=== PATIENT | female | born 1935 | race Two or more races ===

== ENCOUNTER → 2024-09-22 11:01 | Outpatient (REF) | payer OTHER, MEDICARE, SELFPAY ==
[2024-09-22 12:13] LABS: % Eosinophils 7.4 % (0-6); % Immature Granulocytes 0.2 % (0-0.5); % Lymphocytes 22.6 % (20.5-51.1); % Monocytes 10.9 % (1.7-9.3); % Neutrophils 57.9 % (42.2-75.2); Absolute Basophils 0.1 10^3/uL (0-0.2); Absolute Eosinophils 0.6 10^3/uL (0-0.7); Absolute Lymphocytes 1.8 10^3/uL (1.2-3.4); Absolute Monocytes 0.9 10^3/uL (0.1-0.6); Absolute Neutrophils 4.7 10^3/uL (1.4-6.5); Hematocrit 30.2 % (37.0-47.0); Hemoglobin 9.8 g/dL (12.0-16.0); Mean Corp Hgb Conc. 32.5 g/dL (33.0-37.0); Mean Corpuscular Volume 95.6 fL (81.0-99.0); Mean Platelet Volume 10.1 fL (7.4-10.4); Nucleated Red Blood Cells % 0 %; Platelet Count 269 10^3/uL (130-400); Red Blood Cell Count 3.16 10^6/uL (4.20-5.40); Red Cell Dist. Width 13.9 % (11.5-14.5); White Blood Cell Count 8.1 10^3/uL (4.8-10.8)
[2024-09-22 12:56] LABS: ALT (SGPT) 13 U/L (0-35); AST (SGOT) 21 U/L (14-36); Albumin 3.8 g/dl (3.5-5.0); Alkaline Phosphatase 88 U/L (38-126); Blood Urea Nitrogen 20 mg/dl (7-17); Carbon Dioxide 32 mmol/L (22-30); Chloride 99 mmol/L (98-107); Glucose 87 mg/dl (70-99); HDL Cholesterol 54 mg/dl; LDL Cholesterol, Calculated 38 mg/dl; Magnesium 2.2 mg/dl (1.6-2.3); Potassium 4.2 mmol/L (3.5-5.1); Sodium 140 mmol/L (135-145); Total Bilirubin 0.5 mg/dl (0.2-1.3); Total Cholesterol 145 mg/dl (50-199); Total Protein 6.3 g/dl (6.3-8.2); Triglyceride 267 mg/dl (10-149); Very Low Density Lipoprotein 53 mg/dl (0-30); eGFR 48.63
[2024-09-22 13:08] LABS: Vitamin B12 833 pg/ml (239-931)
== END ==
LOC: OLABN 11:01
PROVIDERS: ATTENDING PHYSICIAN Student in an Organized Health Care Education/Training Program
DX: I10 Essential (primary) hypertension (principal); E78.5 Hyperlipidemia, unspecified; E78.89 Other lipoprotein metabolism disorders; E53.9 Vitamin B deficiency, unspecified; Z79.899 Other long term (current) drug therapy
CPT/HCPCS: 36415; 80053; 80061; 82607; 83735; 85025

== ENCOUNTER → 2024-10-28 09:57 | Outpatient (REF) | payer MEDICARE, OTHER, SELFPAY ==
[2024-10-28 11:55] LABS: TSH 5.11 uIU/ml (0.47-4.68)
== END ==
LOC: OLABN 09:57
PROVIDERS: ATTENDING PHYSICIAN Student in an Organized Health Care Education/Training Program
DX: E03.9 Hypothyroidism, unspecified (principal)
CPT/HCPCS: 36415; 84443

== ENCOUNTER → 2024-11-22 11:23 | Outpatient (REF) | payer MEDICARE, OTHER, SELFPAY ==
[2024-11-22 12:15] LABS: Hematocrit 31.6 % (37.0-47.0); Hemoglobin 10.0 g/dL (12.0-16.0); Mean Corp Hgb Conc. 31.6 g/dL (33.0-37.0); Mean Corpuscular Volume 96.3 fL (81.0-99.0); Nucleated Red Blood Cells % 0 %; Platelet Count 254 10^3/uL (130-400); Red Cell Dist. Width 14.8 % (11.5-14.5)
[2024-11-22 12:32] LABS: ALT (SGPT) 11 U/L (0-35); AST (SGOT) 17 U/L (14-36); Albumin 3.6 g/dl (3.5-5.0); Alkaline Phosphatase 79 U/L (38-126); Blood Urea Nitrogen 16 mg/dl (7-17); Calcium 9.1 mg/dl (8.4-10.2); Carbon Dioxide 30 mmol/L (22-30); Chloride 102 mmol/L (98-107); Glucose 91 mg/dl (70-99); Magnesium 2.2 mg/dl (1.6-2.3); Potassium 4.0 mmol/L (3.5-5.1); Sodium 138 mmol/L (135-145); Total Protein 6.4 g/dl (6.3-8.2); eGFR 48.63
== END ==
LOC: OLABN 11:23
PROVIDERS: ATTENDING PHYSICIAN Student in an Organized Health Care Education/Training Program
DX: R60.9 Edema, unspecified (principal)
CPT/HCPCS: 36415; 80053; 83735; 85025

== ENCOUNTER → 2025-03-02 13:47 | Outpatient (REF) | payer MEDICARE, OTHER, SELFPAY ==
[2025-03-02 14:06] LABS: Hematocrit 34.1 % (37.0-47.0); Hemoglobin 10.9 g/dL (12.0-16.0); Mean Corp Hgb Conc. 32.0 g/dL (33.0-37.0); Mean Corpuscular Volume 94.2 fL (81.0-99.0); Nucleated Red Blood Cells % 0 %; Platelet Count 208 10^3/uL (130-400); Red Cell Dist. Width 14.7 % (11.5-14.5)
[2025-03-02 15:47] LABS: ALT (SGPT) 14 U/L (0-35); AST (SGOT) 20 U/L (14-36); Albumin 3.9 g/dl (3.5-5.0); Alkaline Phosphatase 82 U/L (38-126); Blood Urea Nitrogen 21 mg/dl (7-17); Calcium 9.0 mg/dl (8.4-10.2); Carbon Dioxide 32 mmol/L (22-30); Chloride 102 mmol/L (98-107); Glucose 92 mg/dl (70-99); Magnesium 2.2 mg/dl (1.6-2.3); Potassium 4.4 mmol/L (3.5-5.1); Sodium 138 mmol/L (135-145); Total Protein 6.7 g/dl (6.3-8.2); eGFR 48.63
== END ==
LOC: OLABN 13:47
PROVIDERS: ATTENDING PHYSICIAN Student in an Organized Health Care Education/Training Program
DX: J44.9 Chronic obstructive pulmonary disease, unspecified (principal)
CPT/HCPCS: 36415; 80053; 83735; 83880; 85025

== ENCOUNTER → 2025-03-29 13:00 | Outpatient (REF) | payer MEDICARE, OTHER, SELFPAY ==
[2025-03-29 14:26] LABS: TSH 5.77 uIU/ml (0.47-4.68)
== END ==
LOC: OLABN 13:00
PROVIDERS: ATTENDING PHYSICIAN Student in an Organized Health Care Education/Training Program
DX: E03.9 Hypothyroidism, unspecified (principal)
CPT/HCPCS: 36415; 84439; 84443

== ENCOUNTER 2025-04-07 22:43 | Inpatient (IN) | payer MEDICARE, OTHER, SELFPAY ==
[2025-04-07 18:54] VITALS: BP 129/59
[2025-04-07 19:00] VITALS: BP 128/58
[2025-04-07 19:10] LABS: Venous Blood Gas B.E. 5.1 mmol/L (-4 to +4); Venous Blood Gas O2 Sat % 87.9 %
--- NOTE | 2025-04-07 19:17 | ED.GENMED ---
History of Present Illness
General
Chief Complaint: Breathing Problem
Time Seen by Provider: 04/07/25 18:53
History of Present Illness
History of Present Illness:
89-year-old female with history of dementia, CHF, COPD on 3 L O2 at baseline presenting to the emergency department for difficulty breathing and fever. Patient arrives from nursing facility. She was noted to have increased work of breathing,
placed on nonrebreather without interval improvement. Medics were subsequently called. Per medics, noted to be febrile and hypoxic. Patient was started on breathing treatments and administered steroids. On arrival, patient does report cough and
shortness of breath. Reports that she is now feeling better after the nonrebreather and the breathing treatments. Denies any associated chest pain or abdominal pain. She is unaware of any fevers. Baseline per medics is orientation to person
only. No additional history or symptoms reported at this time.
Phy Exam
Physical Exam
Physical Exam:
General: Mild to moderate respiratory distress
HEENT: protecting airway
Neck: appears supple
CV: Tachycardic, regular rhythm, no evidence of cyanosis
Resp: Increased work of breathing with wheezing bilaterally
Abd: Soft and non-distended, no tenderness to palpation
Extremities: No deformities, no swelling
Neuro: alert, disoriented to time
: deferred
Rectal: deferred
Psych: Normal affect
Skin: Intact
Scores
Heart Failure Risk
Heart Failure Risk Score: Not Applicable
Sepsis
Sepsis Screening
Sepsis Assessment: Sepsis
Sepsis Screen
Sepsis Screen: Sepsis
Date: 04/07/25
Time: 22:49
Course
Orders/Labs/Results
Orders:
Orders
04/07/25 18:53
Ipratropium/Albuterol Sulfate [Duoneb] 3 ml INH R NOW STA
04/07/25 18:55
CR Chest Portable - 1 View Urgent
Comment:
Reason For Exam: sepsis,. SOB
Reason Study Needs to be Portable: Patient Unstable
04/07/25 19:03
COVID-19 Antigen Urgent
Source: Nasal Swab
Complete Blood Count/With Diff Urgent
Comprehensive Metabolic Panel Urgent
Lactic Acid Q4H
Comment: CANCEL 2nd LACTIC ACID IF 1st LACTIC ACID IS LESS THAN 2
Manual Differential Urgent
PTT Urgent
Prothrombin Time Urgent
Venous Blood Gas Urgent
%Oxygen/Room Air: 30
Blood Culture Q30M
BERNARDA Source: Blood/Venous
Specimen Description:
Influenza A+B Rapid Molecular Urgent
BERNARDA Source: Nasal Swab
Specimen Description:
04/07/25 19:08
Blood Culture Q30M
BERNARDA Source: Blood/Venous
Specimen Description:
04/07/25 20:03
Acetaminophen [Tylenol] 1,000 mg PO NOW STA
04/07/25 21:04
Cefepime HCl [Maxipime] 2,000 mg IV NOW STA
Vancomycin [Vancocin] 1,500 mg 0.9% Sodium Chloride 500 ml [Nss] 500 ml IV NOW
04/07/25 21:39
Azithromycin [Zithromax] 500 mg PO NOW STA
CefTRIAXone [Rocephin] 1,000 mg IV NOW STA
04/07/25 21:40
Doxycycline [Vibramycin] 100 mg PO NOW STA
04/07/25 21:44
Sterile Water [Sterile Water For Injection] 10 ml IV STAT STA
04/07/25 21:55
Strep pneumoniae Antigen Urgent
BERNARDA Source: Urine
Specimen Description:
04/07/25 22:00
Admit/Transfer Patient As Directed
Co-Sign Provider:
Level of Care: Inpatient admission
Assign to:: Telemetry
Physician / Group: loly loza
Diagnosis: Acute/ chron hypoxic resp failure 2/2 copd/R pna
Reason for Telemetry: Arrhythmia
Date to Stop Telemetry: 04/10/25
Time to Stop Telemetry: 11:00
Reason for Hospitalization: Acute/ chron hypoxic resp failure 2/2 copd/R pna
Expected length of stay greater than two midnights?: Yes
ELOS- Estimated Length of Stay in days: 3
I certify the patient meets the requirements for IP care: Yes
Code Status As Directed
Resuscitation Status: Full Code
04/07/25 22:11
PRN Pain Medication Management As Directed
May give lesser potent ordered pain med per pt: Yes
preference::
Protocol:: Medication orders for pain may be administered in a
manner that supports deferring to patient preference
when the pt is:
- Requesting an ordered lesser potent pain medication.
Least to most potent pain medications are defined
as: acetaminophen < NSAID < tramadol < opioids
(morphine, oxycodone, hydromorphone).
- Requesting a lesser dose of the same medication IF
ORDERED.
- Requesting a less intrusive route of administration
if both routes are prescribed by the provider (PO <
IV).
04/07/25 22:39
Urinalysis Reflex To Culture Urgent
Date Specimen was Collected: 04/07/25
Time Specimen was Collected: 22:37
Urine Microscopic Reflex Cult Urgent
04/10/25 11:00
DC Protocol for Telemetry ONCE
Abnormal Lab Results
04/07/25 04/07/25
19:03 22:39
RBC 3.14 L 10^6/uL
(4.20-5.40)
Hgb 9.5 L g/dL
(12.0-16.0)
Hct 29.7 L %
(37.0-47.0)
MCHC 32.0 L g/dL
(33.0-37.0)
RDW 14.8 H %
(11.5-14.5)
Segmented Neutrophils 41 L %
(42-75)
Band Neutrophils 18 H %
(0-3)
Lymphocytes (Manual) 16 L %
(20-51)
Monocytes (Manual) 24 H %
(2-9)
VBG pH 7.31 L
(7.32-7.43)
VBG pCO2 65 H mmHg
(35-48)
VBG pO2 57 H mmHg
(30-50)
VBG HCO3 32.7 H mmol/L
(22-27)
Carbon Dioxide 31 H mmol/L
(22-30)
Glucose 117 H mg/dl
(70-99)
Urine Ketones 2+ A
(Negative)
Ur Occult Blood Reflex 1+ A
(Negative)
Urine Albumin (Reflex) 2+ A
(Neg - Trace)
04/07/25 19:03
04/07/25 19:03
Vital Signs
Initial and Last Documented VS:
Initial Vital Signs
Pulse Resp BP Pulse Ox
115 31 129/59 100
04/07/25 18:54 04/07/25 18:54 04/07/25 18:54 04/07/25 18:54
Last Documented Vital Signs
Pulse Resp BP Pulse Ox
96 25 120/70 94
04/07/25 22:15 04/07/25 22:15 04/07/25 22:00 04/07/25 22:15
MDM/Problems Addressed
MDM/Problems Addressed:
[id number]-year-old female with history of COPD, CHF, dementia presenting for difficulty breathing and fever. Vital signs arrival significant for tachycardia.
On exam, patient in mild to moderate respiratory distress with increased work of breathing, bilateral wheezing. Patient noted to be febrile, meeting SIRS criteria with suspected source of infection being pulmonary. Patient reports interval
improvement on nonrebreather. Will maintain while getting breathing treatments. Received steroids prior to arrival. Plan for laboratory analysis including lactic acid, cultures, chest x-ray imaging. Holding IV fluids given known history of CHF.
Will continue to closely monitor.
21:00 -Patient's labs relatively unremarkable. No leukocytosis, normal lactic acid. No present concern for severe sepsis or septic shock. No indication for 30 cc/kg fluid bolus. Again known history of CHF. Chest x-ray shows possible right-sided
pneumonia. On reassessment, remains wheezy, increased O2 requirements, however stable. In the setting of hypoxia, fever, cough, clinical concern for pneumonia. Given senior care setting, will treat with broad-spectrum antibiotics for concern of
hospital-acquired. Plan for admission
*Pulse Oximetry
SaO2: 100
Nasal Cannula flow liters per minute: 6
Patient hypoxic: yes
*EKG
Interpreted by ED Provider?: Yes
EKG Intrepretation Date: 04/07/25
EKG Intrepretation Time: 19:19
Interpretation: normal
Comparison EKG: no changes (01/23/25)
Heart Rate: 72
Rate: normal
Rhythm: sinus
[place]: normal axis
Interval: normal interval
QRS Pattern: normal QRS
Ischemia: no ischemia
*Critical Care Note
Total Time (30-74mins, 75-104mins- exclusive of procedures): 37
comment:
The high probability of a clinically significant, sudden or life threatening deterioration of the pulmonary/sepsis system(s) required my full and direct attention, intervention and personal management. The aggregate critical care time was 37
minutes. This time is in addition to time spent performing reported procedures but includes the following:
[x] Data Review and interpretation
[x] Patient assessment and monitoring of vital signs
[x] Documentation
[x] Medication orders and management
ED Attending Note
-
Portions of this chart may have been created with voice recognition software.� Occasional wrong word or��sound alike� substitutions may have occurred due to the inherent limitations of voice recognition software.
Discharge Plan
Departure
Patient Disposition: Admit
Date of Disposition: 04/07/25
Time of Disposition: 21:08
Presentation/result/management discussed w/ accepting MD/DO: Hospitalist
Patient with high blood pressure during this ER visit?: No
Condition: Fair
Discharge Problem:
COPD with exacerbation, Hypoxia
Interventions
Interventions:
*Risk Screen - Suicide Last Done: 04/07/25 19:03
*General Assessment Last Done: 04/07/25 19:03
*Neglect/Abuse Screening Last Done: 04/07/25 19:03
*ED- Fall Risk Assessment Last Done: 04/07/25 19:03
*ED COVID-19 Vaccine History Last Done: 04/07/25 19:03
*ED Influenza Vaccine History Last Done: 04/07/25 19:03
ED- Cardiac Assessment Last Done: 04/07/25 19:43
ED- Pulmonary Assessment Last Done: 04/07/25 19:43
[2025-04-07 19:18] VITALS: BMI 27.0
[2025-04-07 19:18] LABS: Hematocrit 29.7 % (37.0-47.0); Hemoglobin 9.5 g/dL (12.0-16.0); Mean Corp Hgb Conc. 32.0 g/dL (33.0-37.0); Mean Corpuscular Volume 94.6 fL (81.0-99.0); Platelet Count 211 10^3/uL (130-400); Red Cell Dist. Width 14.8 % (11.5-14.5)
[2025-04-07 19:21] LABS: APTT 29.0 Sec (23.4-35.0); INR 1.06; PT 14.3 Sec (11.4-14.6)
[2025-04-07 19:31] LABS: ALT (SGPT) 13 U/L (0-35); AST (SGOT) 22 U/L (14-36); Albumin 3.8 g/dl (3.5-5.0); Alkaline Phosphatase 81 U/L (38-126); Blood Urea Nitrogen 13 mg/dl (7-17); Calcium 8.5 mg/dl (8.4-10.2); Carbon Dioxide 31 mmol/L (22-30); Chloride 99 mmol/L (98-107); Estimated Creatinine Clearance 37 ml/min; Glucose 117 mg/dl (70-99); Potassium 4.1 mmol/L (3.5-5.1); Sodium 137 mmol/L (135-145); Total Protein 6.9 g/dl (6.3-8.2); eGFR 54.53
[2025-04-07] MEDS: DUONEB 3 ML INH ×2 (19:37→22:50)
[2025-04-07 19:40] LABS: COVID-19 Antigen Negative (Negative)
[2025-04-07 19:56] LABS: Absolute Neutrophils -Man Diff 5.9 10^3/uL (1.4-6.5)
[2025-04-07 19:57] LABS: Normal RBC Morphology Yes; Platelets Checked Yes; Total Cells Counted 100
[2025-04-07 20:00] VITALS: BP 136/48
[2025-04-07] MEDS: TYLENOL 1000 MG PO (20:48)
[2025-04-07 21:00] VITALS: BP 139/62
--- NOTE | 2025-04-07 21:24 | W.PN.UPDATE ---
Update Note
Progress Note Update
This is an addendum to H&P written by FULFILLMENT ASSOCIATE Juli Peralta
I saw and examined the patient.
The FULFILLMENT ASSOCIATE's note was reviewed and I agree with the note.
Comment:
Ms. Asia George is a 89 yo woman with hx dementia, HF, COPD on 3L O2 presents to the ER with increasing work of breathing and fever. Patient was given breathing treatment and Solumedrol by EMS.
Triage VS: P 115, RR 31, SpO2 100% on 6L
On exam patient appears fatigued, no acute distress. Chest: scattered end expiratory wheezing, no LE swelling
LABS: WBC 10, Hg 9.5, PLT 211, 18% Bands, INR 1.06, Na 136, K+ 4.1, Cl 99, CO2 31, BUN 13, Cr 1.0, Glucose 117, liver enzymes WNL
Covid negative
Influenza negative
CXR with right-sided infiltrate, awaiting final read
MAR: IV Vanc/Cefepime
Right-sided pneumonia
Acute COPD exacerbation
Hypoxic Respiratory Failure 2/2 above requiring NRB, now on 6L
-admit to telemetry
-O2 support as needed
-IV Cef/Doxycycline
-strep pneumo/legionalla ag testing
-duonebs standing and PRN
-continue steroids (received IV Solumedrol by EMS) - start Decadron 4mg q12 tomorrow
-mucinex, acapella
Heart Failure, Unknown EF
Dementia
awaiting completion of med rec
DVT PPx
FULL CODE
76 minutes spent on patient care
--- NOTE | 2025-04-07 21:29 | HPS.HSE ---
Family Physician
-
Family Physician: Eliezer Nguyen,
Chief Complaint
-
Shortness of breath, hypoxia, cough
History of Present Illness
89-year-old female from [facility][1] who said shortness of breath over the past few hours with pulse ox in the low 80s despite her 2 L nasal cannula. She had breathing treatment and Solu-Medrol given by EMS she required 6 L nasal cannula. She
reports a productive cough clear in color the patient denies headache, fever, chills, chest pain, palpitations, abdominal pain, nausea, vomiting, diarrhea
She has past medical history dementia, CHF, COPD on chronic 2 to 4 L oxygen
Medical History
Past Medical History
Past Medical History: Reports Other
Additional Past Medical History:
dementia
CHF
COPD on chronic 2 to 4 L oxygen
Past Surgical History: Reports Other (Unknown)
Social History
Tobacco: Former Smoker
Alcohol: None
Drug: None
Personal: Single
Living: [facility]
Employment: Retired
Family History
Family History: Not pertinent
Allergies / Home Medications
Allergies reflects when Allergies were last updated in [employer].
Home Medications with original date entered in [employer]
Allergy/Medication List:
Allergies
Allergy/AdvReac Type Severity Reaction Status Date / Time
amoxicillin Allergy Rash Verified 04/07/25 19:19
simvastatin Allergy Rash Verified 04/07/25 19:19
Home Medications
Aspir-81 81 mg PO DAILY 04/07/25
B12 1,000 mcg PO DAILY 04/07/25
Miralax 17 mg PO DAILY 04/07/25
Pepcid 20 mg PO DAILY 04/07/25
Refresh Tears 1 drp LEFT EYE QID 04/07/25
amlodipine 2.5 mg PO DAILY 04/07/25
escitalopram oxalate 10 mg tablet 10 mg PO DAILY 04/07/25
furosemide 40 mg tablet 40 mg PO DAILY 04/07/25
ipratropium 0.5 mg-albuterol 3 mg (2.5 mg base)/3 mL nebulization soln 3 ml inhalation TID 04/07/25
levothyroxine 75 mcg tablet 75 mcg PO DAILY 04/07/25
metoprolol succinate 25 mg tablet,extended release 24 hr 25 mg PO DAILY 04/07/25
senna 8.6 mg PO DAILY 04/07/25
tiotropium 2.5 mcg-olodaterol 2.5 mcg/actuation mist for inhalation (Stiolto Respimat) 1 puff inhalation DAILY 04/07/25
Review of Systems
-
History Source: Patient and [facility]
A 12 point ROS was completed and negative except as noted: Yes
Constitutional: Denies Fever
EENT: Denies Sore Throat or Runny Nose
Respiratory: Reports Cough (Productive clear in color) and Trouble Breathing
Cardiac: Denies Chest Pain or Syncope
Abdomen/GI: Denies Abdominal Pain, Nausea, Vomiting or Diarrhea
: Denies Dysuria, Frequency, Flank Pain, Incontinence or Difficulty Voiding
Musculoskeletal: Denies Joint Pain
Skin: Denies Itching or Rash
Neurological: Denies Dizzy, Headache or Weakness
Endocrine: Reports No Symptoms
Hematologic/Lymphatic: Reports No Symptoms
Psych: Reports Calm
Physical Exam
Vital Signs
Vital Signs
Pulse Resp BP Pulse Ox
102 25 139/62 94
04/07/25 21:15 04/07/25 21:15 04/07/25 21:00 04/07/25 21:15
Physical Exam
General: Conversant
HEENT: NormoCephalic, Anicteric, Moist mucous membranes, PERRLA, Rhodell Conjunctivae, No Ptosis and Oxygen (6 L nasal cannula)
Respiratory: Decreased Breath Sounds (Throughout both lung ragland); No Wheezes, Rales or Rhonchi
Cardiac: S1/S2 and Regular Rhythm; No Murmur, Rub, Gallop or Peripheral Edema
Breast: Deferred by me
GI: Soft, Non Tender, Non Distended and Normal Bowel Sounds
Rectal: Deferred by Provider
Genito-urinary: Deferred by me
Musculoskeletal: No Clubbing, No Cyanosis and No Edema
Skin: Warm and Dry; No Rash
Neuro: AO x 3, No Motor Deficits, Nonfocal/grossly intact, Cranial Nerves Intact and No Sensory Deficits; No Slurred Speech, Facial Droop, Tremors or Sedated
Psych: Calm
Laboratory Results
-
04/07/25 19:03
04/07/25 19:
Laboratory Results
PT 14.3 Sec (11.4-14.6) 04/07/25 19:03
INR 1.06 04/07/25 19:
APTT 29.0 Sec (23.4-35.0) 04/07/25 19:03
Lactic Acid Cancelled 04/07/25 23:00
Total Bilirubin 0.9 mg/dl (0.2-1.3) 04/07/25 19:03
AST 22 U/L (14-36) 04/07/25 19:03
ALT 13 U/L (0-35) 04/07/25 19:03
Alkaline Phosphatase 81 U/L (38-126) 04/07/25 19:03
Data Reviewed
-
Diagnostic Radiology: Report Reviewed by me
Lab Data: Labs Reviewed by me
Impression/Plan
-
Impression/plan:
Admit to telemetry
#Acute on chronic hypoxic respiratory failure secondary to COPD exacerbation with possible right-sided PNA
Patient typically on 2 to 4 L nasal cannula requiring 6 L satting at 94% as she refuses BiPAP
WBC 10, 16% bands 94% 6 L nasal cannula
COVID/influenza negative
Patient was given Solu-Medrol by EMS
Will continue Decadron 4 mg every 12 hours
Check strep pneumoniae antigen
- IV Rocephin, Zithromax
-Incentive spirometry
-Tylenol
-DuoNebs scheduled and as needed
-Blood cultures x 2
Follow CBC, CMP
-Consult PT/OT/rn case management
#Dementia
mild oriented to name place history
#Chronic CHF
I/O, Daily weight
#Chronic anemia normocytic
Hgb 9.5 appears near baseline
DVT prophylaxis
sq lovenox
Full code
[2025-04-07 22:00] VITALS: BP 120/70
[2025-04-07] MEDS: VIBRAMYCIN 100 MG PO (22:08)
[2025-04-07] MEDS: ROCEPHIN 1000 MG IV (22:08)
[2025-04-07] MEDS: STERILE WATER FOR INJECTION 10 ML IV (22:12)
[2025-04-07 22:47] LABS: Urine Character Clear (Clear)
[2025-04-07 22:56] LABS: Urine Squamous Cell >30 /LPF (Few)
[2025-04-07 22:57] LABS: Urine Red Blood Cell 0-2 /HPF (0-2); Urine White Cell 0-2 /HPF (0-5)
[2025-04-07 23:00] VITALS: BP 132/74
[2025-04-08] VITALS (30 sets, daily range): BP systolic 88–145; BP diastolic 40–76; BMI 27.0; BMI 25.7
[2025-04-08 02:36] LABS: B.E. 3.3 mmol/L; HCO3 30.4 mmol/L (21-28); O2 Saturation % 97.5 % (94-98); PCO2 59 mmHg (32-35); PO2 81 mmHg (83-108)
[2025-04-08] MEDS: SYNTHROID PO ×2 (05:18→05:56)
[2025-04-08] MEDS: DECADRON 4 MG IV ×2 (05:18→17:32)
[2025-04-08 06:01] LABS: Hematocrit 29.6 % (37.0-47.0); Hemoglobin 9.6 g/dL (12.0-16.0); Mean Corp Hgb Conc. 32.4 g/dL (33.0-37.0); Mean Corpuscular Volume 92.8 fL (81.0-99.0); Nucleated Red Blood Cells % 0 %; Platelet Count 209 10^3/uL (130-400); Red Cell Dist. Width 14.7 % (11.5-14.5)
--- NOTE | 2025-04-08 06:01 | PTCARENOTE ---
Received verbal report from TEQUILA Jerome. Patient arrived to floor via stretcher. Patient oriented only to self and lethargic. On HFNC at arrival to the floor, current settings are 40L 25% , SpO2 currently 92%. NSR on the monitor. PW in place due
to respiratory status, which is draining yellow urine. Hygiene complete. Patient currently resting in bed with bed alarm on.
[2025-04-08 06:38] LABS: ALT (SGPT) 13 U/L (0-35); AST (SGOT) 16 U/L (14-36); Albumin 3.6 g/dl (3.5-5.0); Alkaline Phosphatase 77 U/L (38-126); Blood Urea Nitrogen 19 mg/dl (7-17); Calcium 8.7 mg/dl (8.4-10.2); Carbon Dioxide 31 mmol/L (22-30); Chloride 99 mmol/L (98-107); Estimated Creatinine Clearance 30 ml/min; Glucose 167 mg/dl (70-99); Potassium 4.1 mmol/L (3.5-5.1); Sodium 137 mmol/L (135-145); Total Protein 6.6 g/dl (6.3-8.2); eGFR 48.63
--- NOTE | 2025-04-08 06:48 | W.PN.UPDATE ---
Update Note
Progress Note Update
Became less responsive overnight, ABG� done PCO2 59 weaning down FIO2 HFNC to keep POX 90-92%. Soft bp 88 systolic. Added bolus IVF and levophed but on hold for now with improvement of bp.
--- NOTE | 2025-04-08 07:23 | W.PN.HOSP.TC ---
Today's Communication/Plan
-
See plan
Assessment / Plan
Assessment / Plan
Physical Exam
General: Not in acute distress
HEENT: Normocephalic. On high flow oxygen.
Respiratory: Decreased Breath Sounds (Throughout both lung ragland)
Cardiac: S1/S2 and Regular Rate and Rhythm
GI: Soft, Non Tender, Non Distended and Normal Bowel Sounds
Musculoskeletal: No Cyanosis and No Edema
Skin: Warm and Dry
Neuro: AAO x 3, No Motor Deficits, Nonfocal/grossly intact, Cranial Nerves Intact and No Sensory Deficits
Psych: Calm
Assessment/Plan
Ms. Asia George is a 89 yo female with past medical history of dementia, heart failure, COPD on 2 L to 4 L O2 presented to the emergency room with increased work of breathing and fever. She was saturating 80s percent range on her usual
baseline oxygen of 2 L to 4 L. Patient was given breathing treatment and Solumedrol by EMS. She reports a productive cough clear in color the patient denies headache, fever, chills, chest pain, palpitations, abdominal pain, nausea, vomiting,
diarrhea.
Initial, triage vital signs: HR 115 bpm, RR 31 breaths/min, SpO2 100% on 6L
Initially, on exam, patient appeared fatigued, no acute distress. Chest: scattered end expiratory wheezing, no LE swelling
LABS: WBC 10, Hg 9.5, PLT 211, 18% Bands, INR 1.06, Na 136, K+ 4.1, Cl 99, CO2 31, BUN 13, Cr 1.0, Glucose 117, liver enzymes WNL
Covid negative
Influenza negative
Patient initially received IV Vancomycin and Cefepime for suspected right-sided pneumonia.
#Acute on chronic hypoxic respiratory failure secondary to COPD exacerbation with possible bronchitis or early pneumonia-no obvious infiltrate on chest x-ray
#COPD (chronically on 2 to 4 L nasal cannula)
-WBC 10, 16% bands 94% 6 L nasal cannula
-COVID/influenza negative
-Patient was given Solu-Medrol by EMS
-Continue IV Decadron 4 mg IV every 12 hours
-Strep pneumo antigen negative
-Check Legionella antigen
-IV Rocephin, Doxycycline
-Incentive spirometry
-Nebulizers-begin DuoNebs; hold Spiriva while on ipratropium bromide nebulizers
-BiPAP if needed-suspect chronic hypercapnia
-Follow Blood cultures x 2
-Pulmonary toilet, Mucinex, Acapella
#Suspected Acute CHF Exacerbation
-Received IV fluids for hypotension on 04/08/25 morning
-I/O, Daily weight
-Continue Lasix
-Appreciate cardiology input
#Dementia
-Mild oriented to name place history
#Chronic anemia normocytic
-Hgb stable; appears baseline
Monitor for urinary retention
-Bladder scans/straight cath protocol ordered
DVT prophylaxis
sq lovenox
Diet: Temporary diet of IDDSI 4 puree and IDDSI 2 Mildly thick liquids with supervision during meals. Pt demo poor level of stamina and fluctuating JAVIER. [employer] SERVICE CAPTAIN will follow closely.
Full code
High flow oxygen is a high risk encounter.
Anticipated Discharge: > 48 hours
Subjective/Interval History
-
Date of Service: April 08, 2025
Patient was seen and examined. She was doing okay, denied any new symptoms or complaints.
Objective Data
-
Labs:
Laboratory Results
04/07/25 04/08/25 04/08/25
19:03 02:26 05:44
WBC 7.1
Hgb 9.6 L
Hct 29.6 L
Plt Count 209
PT 14.3
INR 1.06
APTT 29.0
HCO3 30.4 H
Sodium 137 137
Potassium 4.1 4.1
Chloride 99 99
Carbon Dioxide 31 H 31 H
BUN 13 19 H
Creatinine 1.0 1.1 H
Glucose 117 H 167 H
Calcium 8.5 8.7
Total Bilirubin 0.9 0.4
AST 22 16
ALT 13 13
Alkaline Phosphatase 81 77
Vital Signs:
Vital Signs
Temp Pulse Resp BP Pulse Ox
97.8 F 73 21 118/55 93
04/08/25 01:55 04/08/25 06:03 04/08/25 06:03 04/08/25 06:03 04/08/25 06:03
[2025-04-08] MEDS: STRIVERDI RESPIMAT 2 PUFF INH (07:44)
[2025-04-08] MEDS: SPIRIVA RESPIMAT 2.5 MCG 2 PUFF INH (07:44)
[2025-04-08] MEDS: VENTOLIN NEBULES 2.5 MG INH (07:48)
--- NOTE | 2025-04-08 09:16 | CON.PUL ---
Consultation
Consultation Request
Date/Time Consultation Requested: 04/08/2025-7:30 AM
Date/Time Consultation Performed: 04/08/2025-8 AM
Requesting Provider: Hospitalist
Performing Provider: Dr. Gaytan
Reason for Consultation: Shortness of breath/COPD
Medical History
-
Chief Complaint: Shortness of breath
History of Present Illness:
89-year-old former smoking female from [facility] with a history of oxygen dependent COPD, CHF, dementia presented with increasing shortness of breath felt to have COPD exacerbation and pulmonary consulted for COPD exacerbation/shortness of
breath 04/08/2025. Patient states that she is feeling improved today on high flow oxygen. She denies any chest pain, chest tightness, productive cough, pleurisy, abdominal pain, nausea, focal weakness or increased leg swelling. She states that
she had followed with [facility].
Past Medical History
Past Medical History: None (COPD on chronic oxygen 2 to 4 L. Former smoker. Dementia.)
Social History
Tobacco: Former Smoker
Alcohol: None
Drug: None
Living: Half-Way
Occupational Exposures: No known asbestos exposure
Environmental Exposures: Postexposure no known tuberculosis exposure
Family History
Family History: Reviewed & Not Pertinent
Allergies / Home Medications
Allergies
Allergy/AdvReac Type Severity Reaction Status Date / Time
amoxicillin Allergy Rash Verified 04/07/25 19:19
simvastatin Allergy Rash Verified 04/07/25 19:19
Home Medications
�Medication �Instructions �Recorded �Confirmed �Last Taken �Type
Aspir-81 81 mg PO DAILY 04/07/25 04/07/25 Unknown History
B12 1,000 mcg PO DAILY 04/07/25 04/07/25 Unknown History
Miralax 17 mg PO DAILY 04/07/25 04/07/25 04/07/25 08:00 History
Pepcid 20 mg PO DAILY 04/07/25 04/07/25 04/07/25 08:00 History
Refresh Tears 1 drp LEFT EYE QID 04/07/25 04/07/25 Unknown History
amlodipine 2.5 mg PO DAILY 04/07/25 04/07/25 Unknown History
escitalopram oxalate 10 mg tablet 10 mg PO DAILY 04/07/25 04/07/25 Unknown History
furosemide 40 mg tablet 40 mg PO DAILY 04/07/25 04/07/25 Unknown History
ipratropium 0.5 mg-albuterol 3 mg 3 ml inhalation TID 04/07/25 04/07/25 Unknown History
(2.5 mg base)/3 mL nebulization
soln
levothyroxine 75 mcg tablet 75 mcg PO DAILY 04/07/25 04/07/25 Unknown History
metoprolol succinate 25 mg 25 mg PO DAILY 04/07/25 04/07/25 Unknown History
tablet,extended release 24 hr
senna 8.6 mg PO DAILY 04/07/25 04/07/25 Unknown History
tiotropium 2.5 mcg-olodaterol 2.5 1 puff inhalation DAILY 04/07/25 04/07/25 04/07/25 08:00 History
mcg/actuation mist for inhalation
(Stiolto Respimat)
Review of Systems
-
Unable to Obtain full review of systems at this time due to: Other (Per HPI)
Vitals / Labs / Diagnostic Testing
Vital Signs
Temp Pulse Resp BP Pulse Ox
97.7 F 74 18 118/55 94
04/08/25 07:00 04/08/25 07:45 04/08/25 07:45 04/08/25 06:03 04/08/25 08:51
Lab Data
04/08/25 05:44
04/08/25 05:44
Laboratory Results
04/07/25 04/08/25
19:03 02:26
PT 14.3
INR 1.06
APTT 29.0
pH 7.32 L
pCO2 59 H
pO2 81 L
HCO3 30.4 H
O2 Delivery Level
Microbiology
04/07/25 21:55 Urine Streptococcus pneumoniae Antigen (M - Final
Negative for Streptococcus pneumoniae antigen.
A negative result does not exclude infection with
Streptococcus pneumoniae. Clinical correlation is
recommended.
04/07/25 19:03 Nasal Swab Influenza Types A & B (MOHAMUD) - Final
Negative for Influenza A & B, NAAT
Negative results must be combined with clinical observations
and patient history.
Nucleic Acid Amplification test (NAAT)performed on the
Familiar platform.
Diagnostic Testing:
Physical Exam
-
Exam:
Well-nourished and well-developed in no apparent distress
HEENT-atraumatic, normocephalic
Neck-supple, no JVD, no bruit
Heart-regular rate and rhythm-no murmurs, rubs or gallops
Chest with diminished breath sounds, prolonged expiratory time, rare crackle and no wheezes
Back-no tenderness
Abdomen-soft, nontender, nondistended, no hepatosplenomegaly
Extremities-no cyanosis, clubbing, trace lower extremity edema
Integument-intact, no rashes, lesions or ecchymosis
Neurology-alert and oriented, nonfocal motor and sensory exam
Assessment
-
89-year-old former smoking female from [facility] with a history of oxygen dependent COPD, CHF, dementia presented with increasing shortness of breath felt to have COPD exacerbation and pulmonary consulted for COPD exacerbation/shortness of
breath 04/08/2025.
Acute on top of chronic hypoxemic respiratory failure due to COPD exacerbation
COPD exacerbation
Pneumonia-[facility] patient
[id number]-6.5
Chronic hypercapnia-ABG 04/08/2020 5-50 /7.32
Hyperglycemia
Conditions present prior to admission:
COPD on chronic oxygen 2 to 4 L.
Former smoker.
Dementia.
Plan
Respiratory decompensation likely related to COPD exacerbation with possible bronchitis or early pneumonia-no obvious infiltrate on chest x-ray
Supplemental oxygen as needed-currently on high flow-normally on 2 to 4 L
Aspiration precautions
Nebulizers-begin DuoNebs
Hold Spiriva while on ipratropium bromide nebulizers
Decadron 4 mg IV every 12 hours
BiPAP if needed-suspect chronic hypercapnia
Check cultures
Sputum culture if possible
Empiric antibiotics
Consider procalcitonin and if negative then observe off antibiotics
Follow for leukocytosis and temperature curve
Norepinephrine if needed-currently on low-dose
Monitor blood sugar
Insulin supplementation as needed
DVT prophylaxis-on heparin
Mucolytic's-on Mucinex
Reviewed with nursing
Consider outpatient pulm evaluation if additional outpatient assistance needed
Diagnostic data:
Chest x-ray-no obvious acute infiltrate
Data Reviewed
-
EKG: Report reviewed by me
Radiology: Image personally visualized and interpreted and Report reviewed by me
Medical Tests (Nuc Med, Echo etc): Report reviewed by me
Labs: Labs reviewed by me
Old Records: Reviewed
Total Time Spent with Patient (in minutes): 55
--- NOTE | 2025-04-08 10:07 | PTCARENOTE ---
Patient is confused to time, place and drowsy. Patient is mouth breather, desatting at times on high flow 30 liters, 30%. Patiient is at risk of aspirating due to drowsiness. lieutenant shift supervisor had difficulty with oral intake, speech consulted. Notified
Dr. Dang, will wait for speech eval for oral intake clearance.
[2025-04-08] MEDS: DUONEB 3 ML INH ×3 (11:27→19:41)
--- NOTE | 2025-04-08 12:03 | PTOTSP ---
Speech Therapy Evaluation
Pt seen for bedside swallow assessment. Pt is at an increased risk of aspiration given need for high flow oxygen, fluctuating JAVIER, poor stamina and PMH of oxygen-dependent COPD (2-4L), CHF, and dementia. CXR appeared clear but suspicion for early R
PNA. Pt edentulous and dentures left at home. Pt declined textured PO trials due to lack of dentition. With thin liquids via open cup and straw, pt had intermittent immediate cough response, indicating possible penetration and/or aspiration. Pt
managed puree solids and mildly thick liquids with no overt s/sx of aspiration. Pt receiving 30L NC (high flow). SaO2 levels remained stable during PO trials
Recommend:
1. Temporary diet of IDDSI 4 Puree solids and IDDSI 2 Mildly thick liquids�
2. Full supervision during meals due to fluctuating JAVIER
3. Discontinue PO intake if change in mentation, oxygen desaturation, or reduced level of alertness
4. Medication: consider crushed in puree. Ensure pt is fully awake.
5. Aspiration Precautions: small bites/sips, slow rate, elevated HOB, interspace solids/liquids, full assistance/supervision with PO
6. LIBRARIAN ASSISTANT to follow. Will consider VSE pending tolerance of diet/signs of PNA
[2025-04-08] MEDS: ASPIR LOW (ENTERIC COATED) 81 MG PO (12:57)
[2025-04-08] MEDS: SENOKOT 8.6 MG PO (12:57)
[2025-04-08] MEDS: HEPARIN 5000 UNITS SC ×2 (12:57→21:25)
[2025-04-08] MEDS: VIBRAMYCIN 100 MG PO ×2 (12:58→21:26)
[2025-04-08] MEDS: MUCINEX 600 MG PO ×2 (12:58→21:26)
[2025-04-08] MEDS: TOPROL XL 25 MG PO (12:59)
[2025-04-08] MEDS: MIRALAX PO (13:01)
[2025-04-08] MEDS: LEXAPRO 10 MG PO (13:01)
[2025-04-08] MEDS: PEPCID 20 MG PO (13:02)
[2025-04-08] MEDS: VITAMIN B-12 1000 MCG PO (13:03)
[2025-04-08] MEDS: REFRESH EYE DROPS (PF) 1 DROPS LEFT EYE ×3 (13:07→21:26)
[2025-04-08] MEDS: REFRESH EYE DROPS (PF) LEFT EYE (13:07)
[2025-04-08] MEDS: NORVASC 2.5 MG PO (13:19)
--- NOTE | 2025-04-08 15:02 | CM ---
Patient from [facility] with dementia, CHF, COPD, fever and SOB. Initial assessment completed with patient, 2 daughters and granddaughter in room. Patient resides at [facility] for LTC. She has 1 roommate. No steps. Patient ambulates
with a RW or wheelchair. Does not drive. Is on continuous O2 at 2-4 L . Does receive restorative services at [place]. They are teaching her ambulation with a rollator. Does have a HC-POA. Does have [employer] through her past 's benefits.
No psychiatriic hospitalizations. Discharge POC: Return to [place] for resumption of LTC. Await therapy eval for possible SNF. Will not need auth. Referral placed.
--- NOTE | 2025-04-08 15:22 | CON.CAR ---
Addendum entered and electronically signed by Pankaj Thomas MD 04/08/25 16:06:
Attending addendum: Patient seen and examined. PA note reviewed and findings independently confirmed by me. Asked to see and evaluate Ms. George for possible CHF. She is a resident of [facility] and has underlying dementia. She is an
unreliable historian and most of the history I obtained was from family members. She has chronically followed with Dr. Patrick of [facility]. Family reports a prior history of anginal symptoms years ago leading to cardiac catheterization and
coronary stent. She was last seen by her regular cattyman back in February and had been stable for quite some time. She denies any chest pain.
She has a history of heavy tobacco use smoking about 1 pack/day from her teens until the age of 82. She is chronically maintained on 2 L of nasal cannula and is chronically maintained on multiple inhalers. She presented to [facility] for
subacute onset of severe shortness of breath. The family reports that she had cough and cold-like symptoms over the past several days. Her shortness of breath worsened and she was brought to [facility] for further evaluation.
GEN: AAO x 3. Coughing and some difficulty speaking in full sentences
HEENT: NC/AT, sclera are anicteric,
LUNGS: Very poor air movement. Scattered wheezing but not moving much air.
CV: Regular rate and rhythm. Normal S1/S2. Murmur: None
ABD : Soft, nontender. Bowel sounds are present
EXT: No CCE
NEURO: No focal motor deficits. Short and long-term memory recall is poor c/w underlying dementia
Skin: Warm and dry.
RECOMMENDATIONS:
-No active anginal symptoms. Family reports normal heart function in the past. She had been stable from cardiac standpoint when she was last seen by her regular cattyman
-I suspect the majority of her symptoms are primarily pulmonary related
-We have requested records from her regular cattyman.
-Gentle diuresis : Continue oral furosemide. May consider changing to IV for a few days\\
-Family was VERY clear. Patient stated that if anything would happen that she would need shocks or CPR that she would prefer to pass peacefully and would not want aggressive resuscitation. 2 daughters and granddaughter were present and agreed
-Will check echocardiogram
Original Note:
Consultation
Consultation Request
Date/Time Consultation Requested: 04/08/2025
Date/Time Consultation Performed: 04/08/2025
Requesting Provider: Dr. Leonard
Performing Provider: Shyann Wilhelm PA-C for Dr. Thomas
Reason for Consultation: SOB, possible acute HF
Medical History
-
History of Present Illness:
HPI: Asia is an 89-year-old female with past medical history of CAD w/ prior stenting, hypertension, hyperlipidemia, COPD, dementia who presented to [facility] for evaluation after she was noted to be in respiratory distress at [facility]. Her
oxygen was reportedly dipping into the 60s and she had shallow breathing. Family notes she had URI symptoms for the past week or so and has been dealing with a cough, but breathing worsened yesterday resulting in hospitalization. She was given
Solu-Medrol by EMS. COVID and flu testing negative. She was placed on high flow O2 and respiratory status improved. Started on antibiotics and seen by pulmonology who is treating with IV steroids and nebulizers. Cardiology consulted given
concern for possible acute heart failure with proBNP 3070. Chest x-ray read as no acute disease. She continues with cough, and breathing becomes labored when going into coughing fits. Patient family report no known history of heart failure,
cardiomyopathy, or valvular disease. She continues on her p.o. Lasix 40 mg daily.
PMH:
CAD w/ prior stent
Hypertension
Hyperlipidemia
COPD on chronic 2L NC.
Dementia
Past Medical History
Past Medical History: Other (In HPI )
Past Surgical History: and Orthopedic
Social History
Tobacco: Former Smoker (1PPD until 82 years old )
Alcohol: None
Drug: None
Living: [facility]
Employment: Retired
Family History
Family History: CAD
Allergies / Home Medications
Allergy/AdvReac Type Severity Reaction Status Date / Time
amoxicillin Allergy Rash Verified 04/07/25 19:19
simvastatin Allergy Rash Verified 04/07/25 19:19
�Medication �Instructions �Recorded �Confirmed �Type
Aspir-81 81 mg PO DAILY Blood Clot 04/07/25 04/07/25 History
Prevention/Tx
B12 1,000 mcg PO DAILY Supplement 04/07/25 04/07/25 History
Miralax 17 mg PO DAILY Constipation 04/07/25 04/07/25 History
Pepcid 20 mg PO DAILY Gastrointestinal 04/07/25 04/07/25 History
Issue
Refresh Tears 1 drp LEFT EYE QID Eye Condition 04/07/25 04/07/25 History
amlodipine 2.5 mg PO DAILY Blood Pressure 04/07/25 04/07/25 History
escitalopram oxalate 10 mg tablet 10 mg PO DAILY Mental 04/07/25 04/07/25 History
Health/Anxiety
furosemide 40 mg tablet 40 mg PO DAILY Fluid 04/07/25 04/07/25 History
Retention/Swelling
ipratropium 0.5 mg-albuterol 3 mg 3 ml inhalation TID Lung/Breathing 04/07/25 04/07/25 History
(2.5 mg base)/3 mL nebulization Issues
soln
levothyroxine 75 mcg tablet 75 mcg PO DAILY Thyroid 04/07/25 04/07/25 History
metoprolol succinate 25 mg 25 mg PO DAILY Heart 04/07/25 04/07/25 History
tablet,extended release 24 hr Disease/Condition
senna 8.6 mg PO DAILY Constipation 04/07/25 04/07/25 History
tiotropium 2.5 mcg-olodaterol 2.5 1 puff inhalation DAILY 04/07/25 04/07/25 History
mcg/actuation mist for inhalation Lung/Breathing Issues
(Stiolto Respimat)
Review of Systems
-
History Source: Patient and Family
All other systems: Negative unless noted
Physical Exam
Vital Signs
Temp Pulse Resp BP Pulse Ox
97.7 F 86 26 121/72 97
04/08/25 11:30 04/08/25 15:15 04/08/25 15:15 04/08/25 13:19 04/08/25 15:16
Lab Results
04/08/25 05:44
04/08/25 05:44
Qwu-O-Pfdrpumkapu Pept 3070 pg/ml 04/08/25 05:44
Physical Exam
General: Well Developed and Well Nourished
HEENT: Normocephalic and Moist Mucous Membranes
Respiratory: Non Labored Respirations
Cardiac: S1/S2 and Regular Rhythm
Musculoskeletal: No Clubbing, No Cyanosis and No Edema
Skin: Warm and Dry
Neuro: Awake, Alert and Nonfocal/Grossly Intact
Psych: Calm
Impression / Plan
-
PCP: Dr. Nguyen
Boning Room Worker: Dr. Patrick ([facility])
Impression:
Acute hypoxic respiratory failure
COPD w/ acute exacerbation
Pneumonia
Concern for possible acute heart failure
CAD w/ prior cardiac stent
Hypertension
Hyperlipidemia
COPD on chronic 2L NC.
Dementia
Echo 04/08/2025: Study pending
Plan:
-Presented with worsening oxygen requirements. Admitted with acute COPD exacerbation. Also concern for possible heart failure with proBNP 3070.
-Continue antibiotics, steroids, and nebulizers per pulmonology recommendations.
-On high flow O2. Wean O2 as able back to baseline
-Afebrile. COVID and flu testing negative.
-Will check echo. No known history of heart failure, valvular disease per patient and family.
-Continue PO lasix 40mg daily for now. Does not appear significantly volume overloaded on exam.
-Follow daily weights, I&Os.
-Creat stable at 1.1, continue to follow.
-Pending echo results and response to steroids/antibiotics, may consider giving a dose of IV lasix.
-Check EKG. No arrhythmias noted on telemetry.
-Continue aspirin 81mg daily given h/o CAD w/ stenting.
-BP stable. Continue amlodipine, metoprolol.
-Called patient's primary cattyman and requested prior records including last OV and EKG from 02/2025 as well as prior echo 01/2023.
HPI: Asia is an 89-year-old female with past medical history of hypertension, hyperlipidemia, COPD, dementia who presented to [facility] for evaluation after she was noted to be in respiratory distress at [facility]. Her oxygen was reportedly
dipping into the 60s and she had shallow breathing. Family notes she had URI symptoms for the past week or so and has been dealing with a cough, but breathing worsened yesterday resulting in hospitalization. She was given Solu-Medrol by EMS.
COVID and flu testing negative. She was placed on high flow O2 and respiratory status improved. Started on antibiotics and seen by pulmonology who is treating with IV steroids and nebulizers. Cardiology consulted given concern for possible acute
heart failure with proBNP 3070. Chest x-ray read as no acute disease. She continues with cough, and breathing becomes labored when going into coughing fits. Patient family report no known history of heart failure, cardiomyopathy, or valvular
disease. She continues on her p.o. Lasix 40 mg daily.
Data Reviewed
-
Radiology: Report Reviewed by me
Labs: Labs Reviewed by me
Old Records: Requested
[2025-04-08] MEDS: LASIX 40 MG PO (15:45)
--- NOTE | 2025-04-08 17:22 | W.PN.UPDATE ---
Update Note
Progress Note Update
I just called and spoke to patient's daughter Sarahi, and I explained patient's medical condition and management thoroughly. I answered all of her questions and concerns to satisfaction. Sarahi clearly stated that patient's preferences are that if
she were to go into cardiopulmonary arrest, that she is to be DNR, but if patient needs to be intubated for any reason, then she should be intubated and placed on mechanical ventilation.
[2025-04-08] MEDS: STERILE WATER FOR INJECTION 10 ML IV (21:26)
[2025-04-08] MEDS: ROCEPHIN 1000 MG IV (21:26)
[2025-04-09] VITALS (14 sets, daily range): BP systolic 95–133; BP diastolic 41–104; PULSE 78; O2SAT 100; BMI 25.7
--- NOTE | 2025-04-09 01:01 | PTCARENOTE ---
Assumed care of patient from daysnjft RN. Pt aaox1 (to self). SpO2 95% on HFNC 30L 30%. NSR on the monitor w/ BBB. PW draining yellow urine. Hygiene complete. VS and assessment as documented. Patient currently resting in bed with call garnica in reach
and bed alarm on.
[2025-04-09 05:59] LABS: B.E. 7.6 mmol/L; HCO3 33.9 mmol/L (21-28); O2 Saturation % 97.1 % (94-98); PCO2 56 mmHg (32-35); PO2 79 mmHg (83-108)
[2025-04-09 06:00] LABS: O2 Therapy 90
[2025-04-09] MEDS: SYNTHROID 75 MCG PO (06:29)
[2025-04-09] MEDS: DECADRON 4 MG IV (06:29)
[2025-04-09] MEDS: DUONEB 3 ML INH ×2 (07:22→11:24)
[2025-04-09] MEDS: STRIVERDI RESPIMAT 2 PUFF INH (07:22)
[2025-04-09 07:41] LABS: Hematocrit 32.3 % (37.0-47.0); Hemoglobin 10.3 g/dL (12.0-16.0); Mean Corp Hgb Conc. 31.9 g/dL (33.0-37.0); Mean Corpuscular Volume 96.1 fL (81.0-99.0); Nucleated Red Blood Cells % 0 %; Platelet Count 286 10^3/uL (130-400); Red Cell Dist. Width 14.9 % (11.5-14.5)
--- NOTE | 2025-04-09 07:59 | W.PN.HOSP.TC ---
Today's Communication/Plan
-
Continue current management and wean oxygen as tolerated
Assessment / Plan
Assessment / Plan
Physical Exam
General: Not in acute distress
HEENT: Normocephalic. On high flow oxygen.
Respiratory: Decreased Breath Sounds (Throughout both lung ragland)
Cardiac: S1/S2 and Regular Rate and Rhythm
GI: Soft, Non Tender, Non Distended and Normal Bowel Sounds
Musculoskeletal: No Cyanosis and No Edema
Skin: Warm and Dry
Neuro: AAO x 3, No Motor Deficits, Nonfocal/grossly intact, Cranial Nerves Intact and No Sensory Deficits
Psych: Calm
Assessment/Plan
Ms. Asia George is a 89 yo female with past medical history of dementia, heart failure, COPD on 2 L to 4 L O2 presented to the emergency room with increased work of breathing and fever. She was saturating 80s percent range on her usual
baseline oxygen of 2 L to 4 L. Patient was given breathing treatment and Solumedrol by EMS. She reports a productive cough clear in color the patient denies headache, fever, chills, chest pain, palpitations, abdominal pain, nausea, vomiting,
diarrhea.
Initial, triage vital signs: HR 115 bpm, RR 31 breaths/min, SpO2 100% on 6L
Initially, on exam, patient appeared fatigued, no acute distress. Chest: scattered end expiratory wheezing, no LE swelling
LABS: WBC 10, Hg 9.5, PLT 211, 18% Bands, INR 1.06, Na 136, K+ 4.1, Cl 99, CO2 31, BUN 13, Cr 1.0, Glucose 117, liver enzymes WNL
Covid negative
Influenza negative
Patient initially received IV Vancomycin and Cefepime for suspected right-sided pneumonia.
#Acute on chronic hypoxic respiratory failure secondary to COPD exacerbation with possible bronchitis or early pneumonia-no obvious infiltrate on chest x-ray
#COPD (chronically on 2 to 4 L nasal cannula)
-Currently on high flow-40% FiO2 at 40 L (more O2 needed than the day before)
-Repeat CXR on 04/09/25 stable
-COVID/influenza negative
-Patient was given Solu-Medrol by EMS
-Continue IV Decadron 4 mg IV every 12 hours --> switch to IV Solu-Medrol 40 mg daily
-Strep pneumo antigen negative
-Legionella antigen negative
-IV Rocephin, Doxycycline
-Incentive spirometry
-Nebulizers-begin DuoNebs; hold Spiriva while on ipratropium bromide nebulizers
-BiPAP if needed-suspect chronic hypercapnia
-Follow Blood cultures x 2
-Pulmonary toilet, Mucinex, Acapella, Incentive Spirometry
#Concern for Acute CHF Exacerbation
-Received IV fluids for hypotension on 04/08/25 morning
-I/O, Daily weight
-Continue PO Lasix 40mg daily for now. Does not appear significantly volume overloaded on exam.
-Appreciate cardiology input
#Urinary Retention
-Continue bladder scans protocol
#Dementia
-Mild oriented to name place history
#Chronic anemia normocytic
-Hgb stable; appears baseline
Monitor for urinary retention
-Bladder scans/straight cath protocol ordered
DVT prophylaxis
sq lovenox
Diet: Was initially on IDDSI 4 puree and IDDSI 2 but later, on 04/09/25, speech recommended regular solid and thin liquids for diet
Full code
High flow oxygen is a high risk encounter.
Anticipated Discharge: > 48 hours
Subjective/Interval History
-
Date of Service: April 09, 2025
Patient was seen and examined. This morning she reported more chest congestion and shortness of breath.
Hi Bailee, so this patient is on high flow oxygen with increased O2 requirements this AM, more SOB and wet yellow sputum cough, I will order another CXR to be done now, increase the Mucinex from 600 mg Q12H to 1200 mg PO Q12H, I will add 3% saline
for inhalation, will add Pulmicort and make sure head of bed elevated 30 to 45 degrees. If CXR is negative/unremarkable, not sure if you want CT Chest. And wondering if we should do VEST therapy as well.
--See Dr. Karen Ayon Text
Objective Data
-
Labs:
Laboratory Results
04/09/25 04/09/25 04/09/25
05:40 06:45 07:47
WBC 11.9 H
Hgb 10.3 L
Hct 32.3 L
Plt Count 286 D
HCO3 33.9 H
Sodium Cancelled Pending
Potassium Cancelled Pending
Chloride Cancelled Pending
Carbon Dioxide Cancelled Pending
BUN Cancelled Pending
Creatinine Cancelled Pending
Glucose Cancelled Pending
Calcium Cancelled Pending
Total Bilirubin Cancelled Pending
AST Cancelled Pending
ALT Cancelled Pending
Alkaline Phosphatase Cancelled Pending
Vital Signs:
Vital Signs
Temp Pulse Resp BP Pulse Ox
98.8 F 71 18 123/55 92
04/09/25 03:00 04/09/25 07:28 04/09/25 07:28 04/09/25 06:00 04/09/25 07:28
I&O
04/08/25 04/09/25 04/10/25
06:59 06:59 06:59
Intake Total 360 / 360
Output Total 375 / 375
Balance -15 / -15
--- NOTE | 2025-04-09 09:15 | W.PN.CARDCBS ---
Today's Communication / Plan
-
On p.o. Lasix
COPD treatment as you are
We will sign off
Impression / Plan
-
PCP: Dr. Nguyen
[facility] Marker: Dr. Patrick ([facility] Cardiology)
Impression:
Acute hypoxic respiratory failure
COPD w/ acute exacerbation
Pneumonia
Concern for possible acute heart failure
CAD w/ prior cardiac stent
Hypertension
Hyperlipidemia
COPD on chronic 2L NC.
Dementia
Echo 04/08/2025: Study pending
Plan:
-Presented with worsening oxygen requirements. Admitted with acute COPD exacerbation.
-Continue antibiotics, steroids, and nebulizers per pulmonology recommendations.
-On high flow O2. Wean O2 as able back to baseline
-Afebrile. COVID and flu testing negative.
-Continue PO lasix 40mg daily for now. Does not appear significantly volume overloaded on exam.
-Follow daily weights, I&Os.
-Creat stable at 1.1, continue to follow.
-Check EKG. No arrhythmias noted on telemetry.
-Continue aspirin 81mg daily given h/o CAD w/ stenting.
-BP stable. Continue amlodipine, metoprolol.
- We will sign off please call back with further questions
HPI: Asia is an 89-year-old female with past medical history of hypertension, hyperlipidemia, COPD, dementia who presented to [facility] for evaluation after she was noted to be in respiratory distress at [facility]. Her oxygen was reportedly
dipping into the 60s and she had shallow breathing. Family notes she had URI symptoms for the past week or so and has been dealing with a cough, but breathing worsened yesterday resulting in hospitalization. She was given Solu-Medrol by EMS.
COVID and flu testing negative. She was placed on high flow O2 and respiratory status improved. Started on antibiotics and seen by pulmonology who is treating with IV steroids and nebulizers. Cardiology consulted given concern for possible acute
heart failure with proBNP 3070. Chest x-ray read as no acute disease. She continues with cough, and breathing becomes labored when going into coughing fits. Patient family report no known history of heart failure, cardiomyopathy, or valvular
disease. She continues on her p.o. Lasix 40 mg daily.
Progress Note - [facility] And [facility] Marker
Subjective
Date of Service: April 09, 2025
Feels well
Objective
Labs:
04/09/25 06:45
Labs
Hgb 10.3 g/dL (12.0-16.0) L 04/09/25 06:45
Hct 32.3 % (37.0-47.0) L 04/09/25 06:45
Plt Count 286 10^3/uL (130-400) D 04/09/25 06:45
PT 14.3 Sec (11.4-14.6) 04/07/25 19:03
INR 1.06 04/07/25 19:03
APTT 29.0 Sec (23.4-35.0) 04/07/25 19:03
Sodium Cancelled 04/09/25 06:45
Potassium Cancelled 04/09/25 06:45
BUN Cancelled 04/09/25 06:45
Creatinine Cancelled 04/09/25 06:45
Glucose Cancelled 04/09/25 06:45
Vital Signs and I&O:
Vital Signs
Temp Pulse Resp BP Pulse Ox
98.8 F 71 18 123/55 92
04/09/25 03:00 04/09/25 07:28 04/09/25 07:28 04/09/25 06:00 04/09/25 07:28
Vital Signs
Temp Pulse Resp BP Pulse Ox
98.8 F 71 18 123/55 92
04/09/25 03:00 04/09/25 07:28 04/09/25 07:28 04/09/25 06:00 04/09/25 07:28
Intake & Output
04/07/25 04/08/25 04/09/25 04/10/25
06:59 06:59 06:59 06:59
Intake Total 360 / 360
Output Total 375 / 375
Balance -15 / -15
Physical Exam
Physical Exam
����Physical Exam
���������������������General:��no apparent distress, not acutely ill
���������������������������Neck:��supple. no meningeal signs. normal psoterior pharynx
������������������������
���������������������������Heart:��s1/s2 regular rate and rhythm, no murmur. equal radial pulses.
��������������������������Lungs: ��no acute respiratory distress. clear bilaterally
����������������������Abdomen:�normal bowel sounds. not tender. no CVAT
��������������������������Neuro:��alert and oriented. no focal neurological deficits
������������������������������Skin: ��no rash
�����������������������Psychiatric:�well kept. interactive and cooperative
�����������������������Extremities:��no edema. no calf tenderness. negative homans. good distal pulses
��
�
[2025-04-09 09:24] LABS: ALT (SGPT) 19 U/L (0-35); AST (SGOT) 25 U/L (14-36); Albumin 3.8 g/dl (3.5-5.0); Alkaline Phosphatase 95 U/L (38-126); Blood Urea Nitrogen 30 mg/dl (7-17); Calcium 9.6 mg/dl (8.4-10.2); Carbon Dioxide 35 mmol/L (22-30); Chloride 98 mmol/L (98-107); Estimated Creatinine Clearance 27 ml/min; Glucose 119 mg/dl (70-99); Magnesium 2.3 mg/dl (1.6-2.3); Potassium 4.5 mmol/L (3.5-5.1); Sodium 137 mmol/L (135-145); Total Protein 7.0 g/dl (6.3-8.2); eGFR 43.81
[2025-04-09] MEDS: HEPARIN 5000 UNITS SC ×2 (09:33→22:34)
[2025-04-09] MEDS: ASPIR LOW (ENTERIC COATED) 81 MG PO (09:33)
[2025-04-09] MEDS: VIBRAMYCIN 100 MG PO ×2 (09:34→22:34)
[2025-04-09] MEDS: VITAMIN B-12 1000 MCG PO (09:34)
[2025-04-09] MEDS: TOPROL XL 25 MG PO (09:34)
[2025-04-09] MEDS: PEPCID 20 MG PO (09:35)
[2025-04-09] MEDS: LASIX 40 MG PO (09:35)
[2025-04-09] MEDS: SENOKOT 8.6 MG PO (09:35)
[2025-04-09] MEDS: NORVASC 2.5 MG PO (09:36)
[2025-04-09] MEDS: REFRESH EYE DROPS (PF) 1 DROPS LEFT EYE ×4 (09:37→22:35)
[2025-04-09] MEDS: MIRALAX 17 GRAMS PO (09:37)
--- NOTE | 2025-04-09 11:23 | W.PN.PUL3 ---
Today's Communication / Plan
-
- Switch to IV Solu-Medrol 40 mg daily
- Add incentive spirometry
- Continue to wean oxygen as tolerated
- Continue current nebulizer therapy as well as antibiotics
Assessment
-
89-year-old former smoking female from [facility] with a history of oxygen dependent COPD, CHF, dementia presented with increasing shortness of breath felt to have COPD exacerbation and pulmonary consulted for COPD exacerbation/shortness of
breath 04/08/2025.
Acute on top of chronic hypoxemic respiratory failure due to COPD exacerbation
COPD exacerbation
Pneumonia-[facility] patient
Xqhtkc-[id number]-1.5
Chronic hypercapnia-ABG 04/08/2020 5-50 /7.32
Hyperglycemia
Conditions present prior to admission:
COPD on chronic oxygen 2 to 4 L.
Former smoker.
Dementia.
Plan
Respiratory decompensation likely related to COPD exacerbation with possible bronchitis or early pneumonia-no obvious infiltrate on chest x-ray
Follow-up chest x-ray 04/09 more suggestive of bibasilar atelectasis rather than pneumonia. In view of tenuous respiratory status, continue antibiotics for now
Supplemental oxygen as needed-currently on high flow-40% FiO2 at 40 L. Continue to wean as tolerated
Aspiration precautions
Nebulizers-begin DuoNebs
Hold Spiriva while on ipratropium bromide nebulizers
DC Decadron, switch to Solu-Medrol 40 mg IV daily starting later today
BiPAP if needed-suspect chronic hypercapnia
Check cultures
Sputum culture if possible
Empiric antibiotics
Consider procalcitonin and if negative then observe off antibiotics
Follow for leukocytosis and temperature curve
Norepinephrine if needed-currently on low-dose
Monitor blood sugar
Insulin supplementation as needed
DVT prophylaxis-on heparin
Mucolytic's-on Mucinex
Reviewed with nursing and primary team
Consider outpatient pulm evaluation if additional outpatient assistance needed
Diagnostic data:
Chest x-ray-no obvious acute infiltrate
Subjective Data
-
Date of Service:
Date of Service: April 09, 2025
Subjective:
Comfortably sitting in bed in no acute distress.
Review of Systems
Genitourinary: Other (All 14 systems reviewed and negative except as stated above in the history of present illness. Reports gradual improvement in dyspnea)
Objective Data
Data Reviewed
Vital Signs / I&O / Oxygen:
Vital Signs
Temp Pulse Resp BP Pulse Ox
98.5 F 72 18 132/52 98
04/09/25 07:29 04/09/25 09:34 04/09/25 07:28 04/09/25 09:36 04/09/25 08:00
Intake and Output
04/08/25 04/09/25 04/10/25
06:59 06:59 06:59
Intake Total 360 / 360
Output Total 375 / 375
Balance -15 / -15
SaO2 98
Nasal Cannula flow liters per 40
minute
Physical Exam
General: Comfortable
HEENT: Normocephalic
Cardiovascular: S1-S2
Respiratory: Wheeze (Mild end expiratory wheezing)
GI: Soft and Non Distended
Neurology: Awake and Alert
Skin: Warm
Labs/Micro/Reports
Lab Data
04/09/25 06:45
04/09/25 08:28
Laboratory Results
04/09/25
05:40
pH 7.39
pCO2 56 H
pO2 79 L
HCO3 33.9 H
O2 Delivery Level 90
Microbiology
04/07/25 22:39 Urine Urine Culture - Final
04/08/25 05:19 Nose MRSA Screen - Final
No Methicillin Resistant Staphylococcus aureus isolated.
04/09/25 06:34 Urine Legionella Urinary Antigen - Final
Negative for Legionella pneumophila Serogroup 1 antigen.
A negative result does not rule out the possiblity of
Legionella infection due to other serogroups or species of
Legionella. Clinical correlation is recommended.
04/07/25 19:08 Blood/Venous Blood Culture - Preliminary
No Growth in 24 hours- Final report to follow
04/07/25 19:03 Blood/Venous Blood Culture - Preliminary
No Growth in 24 hours- Final report to follow
04/07/25 21:55 Urine Streptococcus pneumoniae Antigen (M - Final
Negative for Streptococcus pneumoniae antigen.
A negative result does not exclude infection with
Streptococcus pneumoniae. Clinical correlation is
recommended.
04/07/25 19:03 Nasal Swab Influenza Types A & B (MOHAMUD) - Final
Negative for Influenza A & B, NAAT
Negative results must be combined with clinical observations
and patient history.
Nucleic Acid Amplification test (NAAT)performed on the
[employer] platform.
[2025-04-09] MEDS: MUCINEX PO (11:57)
--- NOTE | 2025-04-09 12:05 | RESPNOTE ---
patient OOB to chair on 4L O2, dipped to 89% with exertion. recovered to 90-92% within 2 minutes.
[2025-04-09] MEDS: VENTOLIN NEBULES INH (13:17)
--- NOTE | 2025-04-09 13:52 | PTCARENOTE ---
Patient only voided 30ml today, bladder scan >400. Patient straight cath for 500ml of nga urine. Notified Dr. Leonard.
[2025-04-09 14:02] LABS: Urine Character Clear (Clear)
[2025-04-09 14:09] LABS: Urine Squamous Cell >30 /LPF (Few)
[2025-04-09] MEDS: LEXAPRO 10 MG PO (14:40)
[2025-04-09] MEDS: SODIUM CHLORIDE 3% FOR INHALATION INH (15:15)
[2025-04-09] MEDS: VENTOLIN NEBULES 2.5 MG INH ×2 (15:20→20:10)
[2025-04-09] MEDS: SOLU-MEDROL PF 40 MG IV (16:32)
--- NOTE | 2025-04-09 16:43 | PTCARENOTE ---
Patient is now awake, alert and oriented to person and place. Oxygen weaned down to 4 liters nasal cannula. Patient was out of bed to chair today with family visiting. Denying pain when asked. Issues with urinary retention discussed with
hospitalist. Urinalysis sent. Patient was complaint with plan of care today, able to take all medications and feed herself.
[2025-04-09] MEDS: SODIUM CHLORIDE 3% FOR INHALATION 1 VIAL INH (20:09)
[2025-04-09] MEDS: MUCINEX 600 MG PO (22:34)
[2025-04-09] MEDS: ROCEPHIN 1000 MG IV (22:35)
[2025-04-09] MEDS: STERILE WATER FOR INJECTION 10 ML IV (22:35)
[2025-04-10] VITALS (15 sets, daily range): BP systolic 89–148; BP diastolic 39–111; BMI 25.7
--- NOTE | 2025-04-10 00:26 | PTCARENOTE ---
Assumed care of patient from dayshift RN. Pt aaox2 to self and place. SpO2 95% on 4L NC. NSR on the monitor w/ BBB, hr 68. VS and assessment as documented. Patient inc of urine and bed saturated. Hygiene completed including complete bed change.
Patient currently resting in bed with call garnica in reach and bed alarm on.
[2025-04-10] MEDS: SYNTHROID 75 MCG PO (03:10)
[2025-04-10 03:31] LABS: Hematocrit 29.6 % (37.0-47.0); Hemoglobin 9.8 g/dL (12.0-16.0); Mean Corp Hgb Conc. 33.1 g/dL (33.0-37.0); Mean Corpuscular Volume 94.0 fL (81.0-99.0); Nucleated Red Blood Cells % 0 %; Platelet Count 260 10^3/uL (130-400); Red Cell Dist. Width 14.7 % (11.5-14.5)
[2025-04-10 03:48] LABS: ALT (SGPT) 22 U/L (0-35); AST (SGOT) 26 U/L (14-36); Albumin 3.7 g/dl (3.5-5.0); Alkaline Phosphatase 83 U/L (38-126); Blood Urea Nitrogen 36 mg/dl (7-17); Calcium 8.9 mg/dl (8.4-10.2); Carbon Dioxide 33 mmol/L (22-30); Chloride 101 mmol/L (98-107); Estimated Creatinine Clearance 30 ml/min; Glucose 127 mg/dl (70-99); Potassium 4.2 mmol/L (3.5-5.1); Sodium 139 mmol/L (135-145); Total Protein 6.7 g/dl (6.3-8.2); eGFR 48.63
[2025-04-10] MEDS: STRIVERDI RESPIMAT 2 PUFF INH (07:51)
[2025-04-10] MEDS: VENTOLIN NEBULES 2.5 MG INH ×4 (07:51→19:41)
[2025-04-10] MEDS: SODIUM CHLORIDE 3% FOR INHALATION 1 VIAL INH ×3 (07:51→19:41)
[2025-04-10] MEDS: MUCINEX 600 MG PO ×2 (08:46→20:31)
[2025-04-10] MEDS: ASPIR LOW (ENTERIC COATED) 81 MG PO (08:46)
[2025-04-10] MEDS: MIRALAX 17 GRAMS PO (08:46)
[2025-04-10] MEDS: REFRESH EYE DROPS (PF) 1 DROPS LEFT EYE ×4 (08:46→20:31)
[2025-04-10] MEDS: SOLU-MEDROL PF IV (08:46)
[2025-04-10] MEDS: VIBRAMYCIN 100 MG PO ×2 (08:46→20:31)
[2025-04-10] MEDS: HEPARIN 5000 UNITS SC ×2 (08:47→20:31)
[2025-04-10] MEDS: PEPCID 10 MG PO (08:47)
[2025-04-10] MEDS: VITAMIN B-12 1000 MCG PO (08:47)
[2025-04-10] MEDS: SENOKOT 8.6 MG PO (08:47)
[2025-04-10] MEDS: LASIX 40 MG PO (08:52)
[2025-04-10] MEDS: TOPROL XL 25 MG PO (08:52)
[2025-04-10] MEDS: NORVASC 2.5 MG PO (08:53)
[2025-04-10] MEDS: SOLU-MEDROL PF 40 MG IV (10:41)
[2025-04-10] MEDS: LEXAPRO 10 MG PO (11:26)
--- NOTE | 2025-04-10 12:10 | W.PN.HOSP.TC ---
Today's Communication/Plan
-
Per my [place] Text communication with nurse, patient is still on 6 L oxygen, I discussed with pulmonary who recommended against patient discharge until O2 requirement consistently less then 4 L
Continue antibiotics, pulmonary toilet
Assessment / Plan
Assessment / Plan
Physical Exam
General: Not in acute distress
HEENT: Normocephalic. Now tapered from high-flow oxygen to 4 L nasal cannula oxygen
Respiratory: Decreased Breath Sounds (Throughout both lung [place])
Cardiac: S1/S2 and Regular Rate and Rhythm
GI: Soft, Non Tender, Non Distended and Normal Bowel Sounds
Musculoskeletal: No Cyanosis and No Edema
Skin: Warm and Dry
Neuro: AAO x 3, No Motor Deficits, Nonfocal/grossly intact, Cranial Nerves Intact and No Sensory Deficits
Psych: Calm
Assessment/Plan
Ms. Asia George is a 89 yo female with past medical history of dementia, heart failure, COPD on 2 L to 4 L O2 presented to the emergency room with increased work of breathing and fever. She was saturating 80s percent range on her usual
baseline oxygen of 2 L to 4 L. Patient was given breathing treatment and Solumedrol by EMS. She reports a productive cough clear in color the patient denies headache, fever, chills, chest pain, palpitations, abdominal pain, nausea, vomiting,
diarrhea.
Initial, triage vital signs: HR 115 bpm, RR 31 breaths/min, SpO2 100% on 6L
Initially, on exam, patient appeared fatigued, no acute distress. Chest: scattered end expiratory wheezing, no LE swelling
LABS: WBC 10, Hg 9.5, PLT 211, 18% Bands, INR 1.06, Na 136, K+ 4.1, Cl 99, CO2 31, BUN 13, Cr 1.0, Glucose 117, liver enzymes WNL
Covid negative
Influenza negative
Patient initially received IV Vancomycin and Cefepime for suspected right-sided pneumonia.
#Acute on chronic hypoxic respiratory failure secondary to COPD exacerbation with possible bronchitis or early pneumonia-no obvious infiltrate on chest x-ray
#COPD (chronically on 2 to 4 L nasal cannula)
-Today on 6 L oxygen as per nurse (previously was on high flow-40% FiO2 at 40 L)
-Repeat CXR on 04/09/25 stable
-COVID/influenza negative
-Patient was given Solu-Medrol by EMS
-Continue IV Decadron 4 mg IV every 12 hours --> switch to IV Solu-Medrol 40 mg daily
-Strep pneumo antigen negative
-Legionella antigen negative
-IV Rocephin and Doxycycline
-Incentive spirometry
-Nebulizers-begin DuoNebs; hold Spiriva while on ipratropium bromide nebulizers
-Budesonide 0.5 mg BID
-BiPAP if needed-suspect chronic hypercapnia
-Follow Blood cultures x 2
-Pulmonary toilet: 3% saline inhalation, Mucinex, Acapella, Incentive Spirometry
-Discussed case with Dr. Jones on 04/10/25 -- patient consistently needs to be at 5 L/min of O2 nasal cannula or less in order to be discharged
#Concern for Acute CHF Exacerbation
-Received IV fluids for hypotension on 04/08/25 morning
-I's and O's
-Daily Weights
-Continue PO Lasix 40mg daily for now. Does not appear significantly volume overloaded on exam.
-Appreciate cardiology input
-Follow-up echocardiogram results (echo completed)
#Urinary Retention
-Continue bladder scans protocol
#Dementia
-Mild oriented to name place history
#Chronic anemia normocytic
-Hgb stable; appears baseline
#Urinary retention?
-Bladder scans/straight cath protocol ordered
DVT Prophylaxis: Heparin subq
Diet: Was initially on IDDSI 4 puree and IDDSI 2 but later, on 04/09/25, speech recommended regular solid and thin liquids for diet
Code Status: Full code
Anticipated Discharge: Within 24 hours
Subjective/Interval History
-
Date of Service: April 10, 2025
Patient was seen and examined. She reported feeling better today, denied any new symptoms or complaints.
Objective Data
-
Labs:
Laboratory Results
04/10/25
03:17
WBC 10.0
Hgb 9.8 L
Hct 29.6 L
Plt Count 260
Sodium 139
Potassium 4.2
Chloride 101
Carbon Dioxide 33 H
BUN 36 H
Creatinine 1.1 H
Glucose 127 H
Calcium 8.9
Total Bilirubin 0.3
AST 26
ALT 22
Alkaline Phosphatase 83
Vital Signs:
Vital Signs
Temp Pulse Resp BP Pulse Ox
98.1 F 64 21 122/47 99
04/10/25 07:48 04/10/25 11:35 04/10/25 11:35 04/10/25 08:53 04/10/25 11:51
I&O
04/09/25 04/10/25 04/11/25
06:59 06:59 06:59
Intake Total 360 / 360 680 / 680 480 / 480
Output Total 375 / 375 730 / 730 400 / 400
Balance -15 / -15 -50 / -50 80 / 80
--- NOTE | 2025-04-10 14:00 | PTCARENOTE ---
Received pt on 4 L NC and Noted desaturation, oxygen increased to 6L nc but while sleeping pt is desaturation to 70-80. Pt placed on 7L midflow and responded well into the 90%. Pt with loose productive cough for pal sputum. Pt does IS with poor
effort reaching 1000 volume. Pt's daughter Sarahi aware of pt not being discharged today. Continue with Acapela, Vest and resp treatments.
--- NOTE | 2025-04-10 14:03 | W.PN.PUL3 ---
Today's Communication / Plan
-
- Add budesonide twice daily
- Continue airway clearance with hypertonic saline, add flutter valve
- Continue to wean oxygen
Assessment
-
89-year-old former smoking female from [facility] with a history of oxygen dependent COPD, CHF, dementia presented with increasing shortness of breath felt to have COPD exacerbation and pulmonary consulted for COPD exacerbation/shortness of
breath 04/08/2025.
Acute on top of chronic hypoxemic respiratory failure due to COPD exacerbation
COPD exacerbation
[facility]neumonia-[facility]
Tklmud-xudbtkeanx-6.5
Chronic hypercapnia-ABG 04/08/2020 5-50 /7.32
Hyperglycemia
Difficulty expectorating secretions
Conditions present prior to admission:
COPD on chronic oxygen 2 to 4 L.
Former smoker.
Dementia.
Plan
Respiratory decompensation likely related to COPD exacerbation with possible bronchitis or early pneumonia-no obvious infiltrate on chest x-ray
Follow-up chest x-ray 04/09 more suggestive of bibasilar atelectasis rather than pneumonia. In view of tenuous respiratory status, continue antibiotics for now
Supplemental oxygen as needed-requirement decreasing, off high flow, currently on supplemental oxygen at 6 L
Aspiration precautions
Nebulizers-budesonide switched to albuterol in view of thick secretions. Hypertonic saline 3% nebulized 3 times daily
Continue Mucinex twice daily, add flutter valve
Hold Spiriva for now
Continue Solu-Medrol 40 mg daily
BiPAP if needed-suspect mild chronic hypercapnia
Await cultures
Sputum culture if possible
Empiric antibiotics
Follow for leukocytosis and temperature curve
Monitor blood sugar
Insulin supplementation as needed
DVT prophylaxis-on heparin
Mucolytic's-on Mucinex
Reviewed with nursing and primary team
Recommend outpatient follow-up with pulmonary clinic.
Diagnostic data:
Chest x-ray-no obvious acute infiltrate
Subjective Data
-
Date of Service:
Date of Service: April 10, 2025
Subjective:
Patient comfortably lying in bed in no acute distress.
Review of Systems
Genitourinary: Other (All 14 systems reviewed and negative except as stated above in the history of present illness.)
Objective Data
Data Reviewed
Vital Signs / I&O / Oxygen:
Vital Signs
Temp Pulse Resp BP Pulse Ox
98.1 F 64 21 122/47 99
04/10/25 07:48 04/10/25 11:35 04/10/25 11:35 04/10/25 08:53 04/10/25 11:51
Intake and Output
04/09/25 04/10/25 04/11/25
06:59 06:59 06:59
Intake Total 360 / 360 680 / 680 480 / 480
Output Total 375 / 375 730 / 730 400 / 400
Balance -15 / -15 -50 / -50 80 / 80
SaO2 99
Nasal Cannula flow liters per 4
minute
Physical Exam
General: Comfortable
HEENT: Normocephalic
Cardiovascular: S1-S2
Respiratory: Wheeze (Improving wheezing)
GI: Soft and Non Distended
Neurology: Awake and Alert
Skin: Warm
Labs/Micro/Reports
Lab Data
04/10/25 03:17
04/10/25 03:17
Microbiology
04/09/25 13:55 Urine Urine Culture - Final
NO GROWTH
04/07/25 19:08 Blood/Venous Blood Culture - Preliminary
No Growth in 48 hours- Final report to follow
04/07/25 19:03 Blood/Venous Blood Culture - Preliminary
No Growth in 48 hours- Final report to follow
04/07/25 22:39 Urine Urine Culture - Final
04/08/25 05:19 Nose MRSA Screen - Final
No Methicillin Resistant Staphylococcus aureus isolated.
04/09/25 06:34 Urine Legionella Urinary Antigen - Final
Negative for Legionella pneumophila Serogroup 1 antigen.
A negative result does not rule out the possiblity of
Legionella infection due to other serogroups or species of
Legionella. Clinical correlation is recommended.
04/07/25 21:55 Urine Streptococcus pneumoniae Antigen (M - Final
Negative for Streptococcus pneumoniae antigen.
A negative result does not exclude infection with
Streptococcus pneumoniae. Clinical correlation is
recommended.
04/07/25 19:03 Nasal Swab Influenza Types A & B (MOAHMUD) - Final
Negative for Influenza A & B, NAAT
Negative results must be combined with clinical observations
and patient history.
Nucleic Acid Amplification test (NAAT)performed on the
[employer] platform.
[2025-04-10] MEDS: PULMICORT 0.5 MG INH (19:41)
[2025-04-10] MEDS: STERILE WATER FOR INJECTION 10 ML IV (20:32)
[2025-04-10] MEDS: ROCEPHIN 1000 MG IV (20:32)
[2025-04-11] VITALS (12 sets, daily range): BP systolic 101–162; BP diastolic 48–68; BMI 25.3
[2025-04-11] MEDS: SYNTHROID 75 MCG PO (04:04)
[2025-04-11] MEDS: ROBITUSSIN DM 5 ML PO ×2 (04:04→23:14)
[2025-04-11 04:59] LABS: Venous Blood Gas B.E. 9.2 mmol/L (-4 to +4); Venous Blood Gas O2 Sat % 99.5 %
[2025-04-11 05:00] LABS: Venous Blood Gas O2 Therapy 6L
[2025-04-11 05:02] LABS: Hematocrit 31.8 % (37.0-47.0); Hemoglobin 10.1 g/dL (12.0-16.0); Mean Corp Hgb Conc. 31.8 g/dL (33.0-37.0); Mean Corpuscular Volume 92.4 fL (81.0-99.0); Nucleated Red Blood Cells % 0 %; Platelet Count 302 10^3/uL (130-400); Red Cell Dist. Width 14.8 % (11.5-14.5)
[2025-04-11 05:21] LABS: Blood Urea Nitrogen 35 mg/dl (7-17); Calcium 9.3 mg/dl (8.4-10.2); Chloride 100 mmol/L (98-107); Estimated Creatinine Clearance 30 ml/min; Glucose 100 mg/dl (70-99); Potassium 4.3 mmol/L (3.5-5.1); Sodium 140 mmol/L (135-145); eGFR 48.63
[2025-04-11 05:31] LABS: Carbon Dioxide 33 mmol/L (22-30)
--- NOTE | 2025-04-11 05:33 | PTCARENOTE ---
patient had coughing spell lasting about 5-10 mins. TT DIE CAST SUPERVISOR. DIE CAST SUPERVISOR at bedside. new orders in. vbg ordered. call garnica in reach.
[2025-04-11] MEDS: VENTOLIN NEBULES 2.5 MG INH ×4 (07:37→20:42)
[2025-04-11] MEDS: STRIVERDI RESPIMAT 2 PUFF INH (07:37)
[2025-04-11] MEDS: SODIUM CHLORIDE 3% FOR INHALATION 1 VIAL INH ×3 (07:37→20:42)
[2025-04-11] MEDS: PULMICORT 0.5 MG INH ×2 (07:37→20:42)
[2025-04-11] MEDS: PEPCID 10 MG PO (08:18)
[2025-04-11] MEDS: SENOKOT 8.6 MG PO (08:18)
[2025-04-11] MEDS: MUCINEX 600 MG PO ×2 (08:18→19:47)
[2025-04-11] MEDS: HEPARIN 5000 UNITS SC ×2 (08:19→19:48)
[2025-04-11] MEDS: TOPROL XL 25 MG PO (08:19)
[2025-04-11] MEDS: LASIX 40 MG PO (08:19)
[2025-04-11] MEDS: REFRESH EYE DROPS (PF) 1 DROPS LEFT EYE ×3 (08:19→17:54)
[2025-04-11] MEDS: ASPIR LOW (ENTERIC COATED) 81 MG PO (08:19)
[2025-04-11] MEDS: VITAMIN B-12 1000 MCG PO (08:19)
[2025-04-11] MEDS: VIBRAMYCIN 100 MG PO ×2 (08:19→19:48)
[2025-04-11] MEDS: SOLU-MEDROL PF 40 MG IV (08:19)
[2025-04-11] MEDS: MIRALAX 17 GRAMS PO (08:20)
[2025-04-11] MEDS: NORVASC 2.5 MG PO (08:20)
--- NOTE | 2025-04-11 09:17 | W.PN.PUL3 ---
Today's Communication / Plan
-
She remains on IV steroids, may consider increasing Lasix to IV
She is having slow progress with her hypoxemia, now on 10 L
But she is very deconditioned, refusing PT/OT, out of bed
If she has general lack of progress and is appearing to be failure to thrive, may consider palliative discussions
Assessment
-
89-year-old former smoking female from [facility] with a history of oxygen dependent COPD, CHF, dementia presented with increasing shortness of breath felt to have COPD exacerbation and pulmonary consulted for COPD exacerbation/shortness of
breath 04/08/2025.
Acute on top of chronic hypoxemic respiratory failure due to COPD exacerbation
COPD exacerbation
[facility]neumonia-[facility]
Fpwmxg-avsaxerqvp-8.5
Chronic hypercapnia-ABG 04/08/2020 5-50 /7.32
Hyperglycemia
Difficulty expectorating secretions
Conditions present prior to admission:
COPD on chronic oxygen 2 to 4 L.
Chronic diastolic HF/CAD
AAA
HTN
HLD
CKD 3
Hypothyroidism
Depression
GERD/constipation
Former smoker.
Dementia.
Plan
Respiratory decompensation likely related to COPD exacerbation with possible bronchitis or early pneumonia-no obvious infiltrate on chest x-ray
Follow-up chest x-ray 04/09 more suggestive of bibasilar atelectasis rather than pneumonia. In view of tenuous respiratory status, continue antibiotics for now
Supplemental oxygen as needed-requirement decreasing, off high flow, currently on supplemental oxygen at 10 L
Aspiration precautions
Nebulizers-budesonide switched to albuterol in view of thick secretions. Hypertonic saline 3% nebulized 3 times daily
Continue Mucinex twice daily, add flutter valve
Hold Spiriva for now
Continue Solu-Medrol 40 mg daily
BiPAP if needed-suspect mild chronic hypercapnia
Await cultures--reviewed, thus far negative
Sputum culture if possible
Empiric antibiotics
Follow for leukocytosis and temperature curve
ProBNP 3070
H/o CHF
Maintained on daily lasix
Resume possibly increase to BID
ECHO pending
Monitor blood sugar
Insulin supplementation as needed
DVT prophylaxis-on heparin
Mucolytic's-on Mucinex
Reviewed with nursing and primary team
Recommend outpatient follow-up with pulmonary clinic.
Deconditioning is a factor, PT OT
Diagnostic data:
CXR 04/09/25: There are new mild bibasilar opacities which are favored to represent atelectasis, however pneumonia cannot be excluded.
Chest x-ray 04/07/25-no obvious acute infiltrate
Total time spent on this consultation/encounter __51__ minutes which includes review of history, physical exam, medications, laboratory data, personal review of imaging, extensive review of outpatient records, discussion with care team and
respiratory therapy.
Subjective Data
-
Date of Service:
Date of Service: April 11, 2025
Chief Complaint: Pulmonary Follow Up
Subjective:
Lethargic today but answering questions
Remains on 10 L mid flow
She does not endorse worsening shortness of breath
Objective Data
Data Reviewed
Vital Signs / I&O / Oxygen:
Vital Signs
Temp Pulse Resp BP Pulse Ox
97.3 F 60 22 139/56 95
04/11/25 07:47 04/11/25 07:39 04/11/25 07:39 04/11/25 04:01 04/11/25 07:39
Intake and Output
04/10/25 04/11/25 04/12/25
06:59 06:59 06:59
Intake Total 680 / 680 600 / 600
Output Total 730 / 730 1475 / 1475
Balance -50 / -50 -875 / -875
SaO2 95
Nasal Cannula flow liters per 5
minute
Physical Exam
General: Comfortable and Poor Appetite
HEENT: Normocephalic and Sinus Tenderness
Cardiovascular: S1-S2 and Regular Rhythm
Respiratory: Crackles and Non-Labored Respirations
GI: Soft and Non Distended
Neurology: Awake, Alert and AO x 3
Skin: Warm and Good Color
Labs/Micro/Reports
Lab Data
04/11/25 04:23
04/11/25 04:23
Microbiology
04/07/25 19:08 Blood/Venous Blood Culture - Preliminary
No Growth in 72 hours- Final report to follow
04/07/25 19:03 Blood/Venous Blood Culture - Preliminary
No Growth in 72 hours- Final report to follow
04/09/25 13:55 Urine Urine Culture - Final
NO GROWTH
04/07/25 22:39 Urine Urine Culture - Final
04/08/25 05:19 Nose MRSA Screen - Final
No Methicillin Resistant Staphylococcus aureus isolated.
04/09/25 06:34 Urine Legionella Urinary Antigen - Final
Negative for Legionella pneumophila Serogroup 1 antigen.
A negative result does not rule out the possiblity of
Legionella infection due to other serogroups or species of
Legionella. Clinical correlation is recommended.
04/07/25 21:55 Urine Streptococcus pneumoniae Antigen (M - Final
Negative for Streptococcus pneumoniae antigen.
A negative result does not exclude infection with
Streptococcus pneumoniae. Clinical correlation is
recommended.
--- NOTE | 2025-04-11 09:20 | W.PN.HOSP.TC ---
Addendum entered and electronically signed by Alejandrina Dominguez MD 04/11/25 14:32:
Addendum
Worsening hypoxia noted. I will order a CAT scan to better look at the lungs, possible double pneumonia/worsening infection.
I will also order ultrasound of lower extremity to rule out blood clot. Would rather avoid IV contrast due to underlying CKD unless it is urgent
Plan discussed with daughter Sarahi over the phone. Updated pulmonary doctor
End
Original Note:
Today's Communication/Plan
-
Continue with steroid, nebulizer treatment
Titrate down oxygen need as possible
Assessment / Plan
Assessment / Plan
Physical Exam
General: Not in acute distress
HEENT: Normocephalic. Now tapered from high-flow oxygen to 4 L nasal cannula oxygen
Respiratory: Decreased Breath Sounds (Throughout both lung ragland)
Cardiac: S1/S2 and Regular Rate and Rhythm
GI: Soft, Non Tender, Non Distended and Normal Bowel Sounds
Musculoskeletal: No Cyanosis and No Edema
Skin: Warm and Dry
Neuro: AAO x 2 self and surroundings, she followed commands
Psych: Calm
Assessment/Plan
Ms. Asia George is a 89 yo female with past medical history of dementia, heart failure, COPD on 2 L to 4 L O2 presented to the emergency room with increased work of breathing and fever. She was saturating 80s percent range on her usual
baseline oxygen of 2 L to 4 L. Patient was given breathing treatment and Solumedrol by EMS. She reports a productive cough clear in color the patient denies headache, fever, chills, chest pain, palpitations, abdominal pain, nausea, vomiting,
diarrhea.
Initial, triage vital signs: HR 115 bpm, RR 31 breaths/min, SpO2 100% on 6L
Initially, on exam, patient appeared fatigued, no acute distress. Chest: scattered end expiratory wheezing, no LE swelling
LABS: WBC 10, Hg 9.5, PLT 211, 18% Bands, INR 1.06, Na 136, K+ 4.1, Cl 99, CO2 31, BUN 13, Cr 1.0, Glucose 117, liver enzymes WNL
Covid negative
Influenza negative
Patient initially received IV Vancomycin and Cefepime for suspected right-sided pneumonia.
#Acute on chronic hypoxic respiratory failure secondary to COPD exacerbation with possible bronchitis or early pneumonia-no obvious infiltrate on chest x-ray
#COPD (chronically on 2 to 4 L nasal cannula)
-Today on 6 L oxygen as per nurse (previously was on high flow-40% FiO2 at 40 L)
-Repeat CXR on 04/09/25 stable
-COVID/influenza negative
-Patient was given Solu-Medrol by EMS
-Continue IV Decadron 4 mg IV every 12 hours --> switch to IV Solu-Medrol 40 mg daily
-Strep pneumo antigen negative
-Legionella antigen negative
-IV Rocephin and Doxycycline
-Incentive spirometry
-Nebulizers-begin DuoNebs; hold Spiriva while on ipratropium bromide nebulizers
-Budesonide 0.5 mg BID
-BiPAP if needed-suspect chronic hypercapnia
-Follow Blood cultures x 2
-Continue airway clearance with hypertonic saline, added flutter valve
-Pulmonary toilet: 3% saline inhalation, Mucinex, Acapella, Incentive Spirometry
-Discussed case with pulmonary, patient consistently needs to be at 5 L/min of O2 nasal cannula or less in order to be discharged
# Not in heart failure. Seen by civil engineering professor.
-Continue PO Lasix 40mg daily for now. Does not appear significantly volume overloaded on exam.
# Acute urinary Retention
-Continue bladder scans protocol
#Dementia
-Mild oriented to name place history
#Chronic anemia normocytic
-Hgb stable; appears baseline
#Urinary retention?
-Bladder scans/straight cath protocol ordered
DVT Prophylaxis: Heparin subq
Diet: Was initially on IDDSI 4 puree and IDDSI 2 but later, on 04/09/25, speech recommended regular solid and thin liquids for diet
Total time spent to see the patient, examine the patient, review data and lab results, discuss treatment plan with patient, nursing staff around 55 minutes�
Anticipated Discharge: > 48 hours
Subjective/Interval History
-
Date of Service: April 11, 2025
She feels better, less sob
No chest pain
Objective Data
-
Labs:
Laboratory Results
04/11/25
04:23
WBC 13.1 H
Hgb 10.1 L
Hct 31.8 L
Plt Count 302
Sodium 140
Potassium 4.3
Chloride 100
Carbon Dioxide 33 H
BUN 35 H
Creatinine 1.1 H
Glucose 100 H
Calcium 9.3
Vital Signs:
Vital Signs
Temp Pulse Resp BP Pulse Ox
97.3 F 60 22 139/56 95
04/11/25 07:47 04/11/25 07:39 04/11/25 07:39 04/11/25 04:01 04/11/25 07:39
I&O
04/10/25 04/11/25 04/12/25
06:59 06:59 06:59
Intake Total 680 / 680 600 / 600
Output Total 730 / 730 1475 / 1475
Balance -50 / -50 -875 / -875
[2025-04-11] MEDS: LEXAPRO 10 MG PO (09:54)
--- NOTE | 2025-04-11 11:38 | PTCARENOTE ---
Patient AOx1 (patients baseline). Forgetful. Bed and chair alarm on and audible. NSR with BBB and first degree on the monitor. On 10L midflow. Weaning liters as able. Moist cough. BP stable. Purewick draining yellow urine. Tolerating oral diet. Call
garnica within reach, bed in lowest position, and bed of wheels locked.
--- NOTE | 2025-04-11 15:04 | CM ---
F/U: Patient has worsening hypoxia so this needs addressing. Patient is a Long-Term Care resident at [facility] in their Dementia Unit. PLAN: Return to [facility] when ready.
[2025-04-11] MEDS: ROCEPHIN 1000 MG IV (19:47)
[2025-04-11] MEDS: STERILE WATER FOR INJECTION 10 ML IV (19:48)
--- NOTE | 2025-04-11 22:00 | PTCARENOTE ---
Received pt from previous shift at 19:00. Systems reviewed, see flowsheets. Pt was up in chair and assisted to bed with Ax1. R wrist #24 PIV leaking, replaced with R forearm #22 by VAT. Initially SaO2 98-99% on 8L NC, decreased to 4L by RT. NSR with
BBB on heart monitor. Pt brought to US for US b/l LE. Back in room at 22:15. Purewick in place. Will continue to monitor.
[2025-04-11] MEDS: REFRESH EYE DROPS (PF) LEFT EYE (22:28)
[2025-04-12] VITALS (14 sets, daily range): BP systolic 108–147; BP diastolic 46–91; PULSE 66; O2SAT 96; BMI 26.0
--- NOTE | 2025-04-12 02:30 | PTCARENOTE ---
Pt unable to keep SaO2 >90% while asleep, likely due to mouth-breathing. Consistently desatting to as low as 79%. Contacted RT after sats dropped to 85% while on 15L MFNC. Pt placed on 4L MFNC with venti mask at 35%. SaO2 96%.
[2025-04-12] MEDS: SYNTHROID 75 MCG PO (05:56)
[2025-04-12] MEDS: STRIVERDI RESPIMAT 2 PUFF INH (07:08)
[2025-04-12] MEDS: PULMICORT 0.5 MG INH ×2 (07:09→19:52)
[2025-04-12] MEDS: SODIUM CHLORIDE 3% FOR INHALATION 1 VIAL INH ×3 (07:09→19:52)
[2025-04-12] MEDS: VENTOLIN NEBULES 2.5 MG INH ×4 (07:09→19:52)
[2025-04-12] MEDS: SOLU-MEDROL PF 40 MG IV (08:23)
[2025-04-12] MEDS: ASPIR LOW (ENTERIC COATED) 81 MG PO (08:24)
[2025-04-12] MEDS: REFRESH EYE DROPS (PF) 1 DROPS LEFT EYE ×4 (08:24→20:06)
[2025-04-12] MEDS: LASIX 40 MG PO (08:24)
[2025-04-12] MEDS: TOPROL XL 25 MG PO (08:24)
[2025-04-12] MEDS: VITAMIN B-12 1000 MCG PO (08:24)
[2025-04-12] MEDS: MUCINEX 600 MG PO ×2 (08:24→20:05)
[2025-04-12] MEDS: SENOKOT 8.6 MG PO (08:24)
[2025-04-12] MEDS: LEXAPRO 10 MG PO (08:24)
[2025-04-12] MEDS: VIBRAMYCIN 100 MG PO ×2 (08:25→20:05)
[2025-04-12] MEDS: NORVASC 2.5 MG PO (08:25)
[2025-04-12] MEDS: MIRALAX 17 GRAMS PO (08:25)
[2025-04-12] MEDS: PEPCID 10 MG PO (08:25)
[2025-04-12] MEDS: HEPARIN 5000 UNITS SC ×2 (08:25→20:05)
--- NOTE | 2025-04-12 09:17 | W.PN.PUL3 ---
Today's Communication / Plan
-
O2 requirements increased with exertion, ongoing PT/OT encouraged to help reduce needs
Will likely need OP sleep study to evaluate nocturnal desaturation
Transition IV sterids to PO course
Will time out abx for 5 day course to complete
Assessment
-
89-year-old former smoking female from [facility] with a history of oxygen dependent COPD, CHF, dementia presented with increasing shortness of breath felt to have COPD exacerbation and pulmonary consulted for COPD exacerbation/shortness of
breath 04/08/2025.
Acute on top of chronic hypoxemic respiratory failure due to COPD exacerbation
COPD exacerbation
Pneumonia-fdc patient
[id number]-2.5
Chronic hypercapnia-ABG 04/08/2020 5-50 /7.32
Hyperglycemia
Difficulty expectorating secretions
Conditions present prior to admission:
COPD on chronic oxygen 2 to 4 L.
Chronic diastolic HF/CAD
AAA
HTN
HLD
CKD 3
Hypothyroidism
Depression
GERD/constipation
Former smoker.
Dementia.
Plan
Respiratory decompensation likely related to COPD exacerbation with possible bronchitis or early pneumonia-no obvious infiltrate on chest x-ray
Follow-up chest x-ray 04/09 more suggestive of bibasilar atelectasis rather than pneumonia. In view of tenuous respiratory status, continue antibiotics for now
Supplemental oxygen as needed-requirement decreasing, off high flow, currently on supplemental oxygen at 3-4 L
Aspiration precautions
Nebulizers-budesonide switched to albuterol in view of thick secretions. Hypertonic saline 3% nebulized 3 times daily
Continue Mucinex twice daily, add flutter valve
Hold Spiriva for now
Solu-Medrol 40 mg daily--transition to PO prednisone
BiPAP if needed-suspect mild chronic hypercapnia
Await cultures--reviewed, thus far negative
Sputum culture if possible
Empiric antibiotics x 5 days then stop
Follow for leukocytosis and temperature curve
ProBNP 3070
H/o CHF
Maintained on daily lasix
Resume possibly increase to BID
ECHO pending
Monitor blood sugar
Insulin supplementation as needed
DVT prophylaxis-on heparin
Mucolytic's-on Mucinex
Reviewed with nursing and primary team
Recommend outpatient follow-up with pulmonary clinic.
Deconditioning is a factor, PT OT
Diagnostic data:
CXR 04/09/25: There are new mild bibasilar opacities which are favored to represent atelectasis, however pneumonia cannot be excluded.
Chest x-ray 04/07/25-no obvious acute infiltrate
Total time spent on this consultation/encounter __51__ minutes which includes review of history, physical exam, medications, laboratory data, personal review of imaging, extensive review of outpatient records, discussion with care team and
respiratory therapy.
Subjective Data
-
Date of Service:
Date of Service: April 12, 2025
Chief Complaint: Pulmonary Follow Up
Subjective:
Sitting at edge of bed, sats 85-87%, but mouth breathing-when asked to close mouth and breathe through nose, sats increased to 90%
No new complaints
Nocturnal desat noted, improved with venti mask
Objective Data
Data Reviewed
Vital Signs / I&O / Oxygen:
Vital Signs
Temp Pulse Resp BP Pulse Ox
97.8 F 62 18 142/91 93
04/12/25 07:00 04/12/25 07:13 04/12/25 07:13 04/12/25 06:00 04/12/25 07:13
Intake and Output
04/11/25 04/12/25 04/13/25
06:59 06:59 06:59
Intake Total 600 / 600 480 / 480
Output Total 1475 / 1475 750 / 750
Balance -875 / -875 -270 / -270
SaO2 93
Nasal Cannula flow liters per 4
minute
Physical Exam
General: Comfortable and Poor Appetite
HEENT: Normocephalic and Sinus Tenderness
Cardiovascular: S1-S2 and Regular Rhythm
Respiratory: Crackles and Non-Labored Respirations
GI: Soft and Non Distended
Neurology: Awake, Alert and AO x 3
Skin: Warm and Good Color
Labs/Micro/Reports
Lab Data
04/11/25 04:23
04/11/25 04:23
Microbiology
04/07/25 19:08 Blood/Venous Blood Culture - Preliminary
No Growth in 4 days- Final report to follow
04/07/25 19:03 Blood/Venous Blood Culture - Preliminary
No Growth in 4 days- Final report to follow
04/09/25 13:55 Urine Urine Culture - Final
NO GROWTH
04/07/25 22:39 Urine Urine Culture - Final
04/08/25 05:19 Nose MRSA Screen - Final
No Methicillin Resistant Staphylococcus aureus isolated.
04/09/25 06:34 Urine Legionella Urinary Antigen - Final
Negative for Legionella pneumophila Serogroup 1 antigen.
A negative result does not rule out the possiblity of
Legionella infection due to other serogroups or species of
Legionella. Clinical correlation is recommended.
--- NOTE | 2025-04-12 09:54 | W.PN.HOSP.TC ---
Today's Communication/Plan
-
c/w steroid
Assess for nighttime hypoxia, ? MIGUEL ANGEL, will f/w pulmonary
Assessment / Plan
Assessment / Plan
Physical Exam
General: Not in acute distress
HEENT: Normocephalic. Now tapered from high-flow oxygen to 4 L nasal cannula oxygen
Respiratory: Decreased Breath Sounds (Throughout both lung ragland)
Cardiac: S1/S2 and Regular Rate and Rhythm
GI: Soft, Non Tender, Non Distended and Normal Bowel Sounds
Musculoskeletal: No Cyanosis and No Edema
Skin: Warm and Dry
Neuro: AAO x 2 self and surroundings, she followed commands
Psych: Calm
Assessment/Plan
#Acute on chronic hypoxic respiratory failure secondary to COPD exacerbation with possible bronchitis or early pneumonia-no obvious infiltrate on chest x-ray
#COPD (chronically on 2 to 4 L nasal cannula)
she is feeling better
CT chest no pNA
US of legs no DVT
c/w steroid, Nebs
Given ABx for bronchitis
Noted to have sleep hypoxia, could be MIGUEL ANGEL
# Not in heart failure. Seen by process helper.
-Continue PO Lasix 40mg daily for now. Does not appear significantly volume overloaded on exam.
# Acute urinary Retention
-Continue bladder scans protocol
#Dementia
-Mild oriented to name place history
#Chronic anemia normocytic
-Hgb stable; appears baseline
#Urinary retention -Bladder scans/straight cath protocol ordered
DVT Prophylaxis: Heparin subq
Diet: Was initially on IDDSI 4 puree and IDDSI 2 but later, on 04/09/25, speech recommended regular solid and thin liquids for diet
Total time spent to see the patient, examine the patient, review data and lab results, discuss treatment plan with patient, nursing staff around 55 minutes�
Anticipated Discharge: Within 24 hours
Subjective/Interval History
-
Date of Service: April 12, 2025
she feels better, less sob, no chest pain
Objective Data
-
Vital Signs:
Vital Signs
Temp Pulse Resp BP Pulse Ox
97.8 F 62 18 142/91 93
04/12/25 07:00 04/12/25 07:13 04/12/25 07:13 04/12/25 06:00 04/12/25 07:13
I&O
04/11/25 04/12/25 04/13/25
06:59 06:59 06:59
Intake Total 600 / 600 480 / 480
Output Total 1475 / 1475 750 / 750
Balance -875 / -875 -270 / -270
--- NOTE | 2025-04-12 18:16 | PTCARENOTE ---
Received this am - on 35% VM- RT transitioned to 4L midflow and then alarming 83%. Titrated MF up to 8L and encouraged IS/FLutter devices. Came up to 93%. Titrated down, Once OOB today she has maintained sao2>94% on 3L. OOB all day does not want
to get up yet. Harsh NPC occasionally. Appetite very good keeps requesting more food. Effects of steroids discussed. No BM noted today- Miralax given. Encouraged to use BSC- denied need. will bladder scan.
[2025-04-12] MEDS: ROCEPHIN 1000 MG IV (20:05)
[2025-04-12] MEDS: STERILE WATER FOR INJECTION 10 ML IV (20:05)
[2025-04-12] MEDS: ROBITUSSIN DM 5 ML PO (20:18)
--- NOTE | 2025-04-12 23:13 | PTCARENOTE ---
Assumed care of patient from dayshift RN. Patient aaox1 (to self). Patient sat in chair for first two hours of the shift. assist of 1 walking from the chair back to the bed. Hygiene completed. Patient was 93% on 4L NC at start of shift. SpO2 dropped
to the 70s while asleep on the 4L and Ventimask placed (6L 35%), current SpO2 94%. NSR with BBB on the monitor. Hygiene completed and PW placed due to respiratory status. VS and assessment as documented. Patient resting in bed with call garnica in
reach and bed alarm on.
[2025-04-13] VITALS (16 sets, daily range): BP systolic 102–149; BP diastolic 48–57; PULSE 2–71; O2SAT 96; BMI 25.6; BMI 24.1
[2025-04-13] MEDS: SYNTHROID 75 MCG PO (05:06)
[2025-04-13 06:06] LABS: Hematocrit 34.8 % (37.0-47.0); Hemoglobin 11.3 g/dL (12.0-16.0); Mean Corp Hgb Conc. 32.5 g/dL (33.0-37.0); Mean Corpuscular Volume 92.6 fL (81.0-99.0); Platelet Count 292 10^3/uL (130-400); Red Cell Dist. Width 14.8 % (11.5-14.5)
[2025-04-13 06:23] LABS: Blood Urea Nitrogen 36 mg/dl (7-17); Calcium 9.1 mg/dl (8.4-10.2); Carbon Dioxide 34 mmol/L (22-30); Chloride 98 mmol/L (98-107); Estimated Creatinine Clearance 30 ml/min; Glucose 97 mg/dl (70-99); Potassium 4.5 mmol/L (3.5-5.1); Sodium 136 mmol/L (135-145); eGFR 48.63
[2025-04-13] MEDS: SODIUM CHLORIDE 3% FOR INHALATION 1 VIAL INH ×2 (07:16→11:27)
[2025-04-13] MEDS: VENTOLIN NEBULES 2.5 MG INH ×3 (07:16→20:25)
[2025-04-13] MEDS: STRIVERDI RESPIMAT 2 PUFF INH (07:16)
[2025-04-13] MEDS: PULMICORT 0.5 MG INH (07:16)
[2025-04-13] MEDS: HEPARIN 5000 UNITS SC ×2 (08:48→20:27)
[2025-04-13] MEDS: MIRALAX 17 GRAMS PO (08:49)
[2025-04-13] MEDS: TOPROL XL 25 MG PO (08:50)
[2025-04-13] MEDS: SENOKOT 8.6 MG PO (08:50)
[2025-04-13] MEDS: VITAMIN B-12 1000 MCG PO (08:50)
[2025-04-13] MEDS: DELTASONE 50 MG PO (08:50)
[2025-04-13] MEDS: REFRESH EYE DROPS (PF) 1 DROPS LEFT EYE ×4 (08:50→20:31)
[2025-04-13] MEDS: MUCINEX 600 MG PO ×2 (08:50→20:27)
[2025-04-13] MEDS: LASIX 40 MG PO (08:50)
[2025-04-13] MEDS: ASPIR LOW (ENTERIC COATED) 81 MG PO (08:51)
[2025-04-13] MEDS: LEXAPRO 10 MG PO (08:51)
[2025-04-13] MEDS: PEPCID 20 MG PO (08:51)
[2025-04-13] MEDS: NORVASC 2.5 MG PO (08:51)
--- NOTE | 2025-04-13 09:26 | W.PN.PUL3 ---
Addendum entered and electronically signed by Helena Painting DO 04/13/25 12:28:
Mouth breathing, ongoing desaturation at night
Has history of chronic CO2 retention, BIPAP has been used on this admission
We will arrange home BIPAP set up, CM consult placed
Patient is an 89-year-old F with COPD, on chronic O2 at home. They have had ER and hospital admission with a chief complaint of shortness of breath and respiratory failure. The patient has a PaCO2 of 65 mmHg on 3 L of oxygen. The patient reports
they are on oxygen continuously. The patient reports they get short of breath with minimal exertion. Due to the patient's comorbidities as noted above and hypoventilation, the patient is at risk for worsening chronic respiratory failure. I have
considered bilevel, bilevel ST and bilevel VAPS therapy and they have all been ruled out due to the patient's worsening clinical condition. The patient now requires a unique mode of ventilation not offered on less costly options. The patient
requires a device that will not fail in the event of a power failure and is also portable for mobility within the home when needed. Due to the patient's worsening condition, I am prescribing NIV therapy to decrease the chance of continued
unexplained expensive medical encounters including physician office visits, emergency/urgent care treatment and hospital readmissions.
Original Note:
Today's Communication / Plan
-
Doing well, she is on 3L (BL use of 2-4L), can wean further as tolerated
Transitioned to PO prednisone taper
Abx completed today
PT/OT evals ongoing, likely to need SNF
Can transfer out of IMU
Discharge planning otherwise per team
Assessment
-
89-year-old former smoking female from [facility] with a history of oxygen dependent COPD, CHF, dementia presented with increasing shortness of breath felt to have COPD exacerbation and pulmonary consulted for COPD exacerbation/shortness of
breath 04/08/2025.
Acute on top of chronic hypoxemic respiratory failure due to COPD exacerbation
COPD exacerbation
Pneumonia-long-term patient
[id number]-2.5
Chronic hypercapnia-ABG 04/08/2020 5-50 /7.32
Hyperglycemia
Difficulty expectorating secretions
Conditions present prior to admission:
COPD on chronic oxygen 2 to 4 L.
Chronic diastolic HF/CAD
AAA
HTN
HLD
CKD 3
Hypothyroidism
Depression
GERD/constipation
Former smoker.
Dementia.
Plan
Respiratory decompensation likely related to COPD exacerbation with possible bronchitis or early pneumonia-no obvious infiltrate on chest x-ray
Follow-up chest x-ray 04/09 more suggestive of bibasilar atelectasis rather than pneumonia.
She is weaned to 3L, satting >95%--continue weaning as tolerated
Baseline use between 2-4L
Supplemental oxygen as needed-requirement decreasing, off high flow, currently on supplemental oxygen at 3 L
Aspiration precautions
Nebulizers-budesonide switched to albuterol in view of thick secretions. Hypertonic saline 3% nebulized 3 times daily
Continue Mucinex twice daily, add flutter valve
Hold Spiriva for now
Solu-Medrol 40 mg daily--transition to PO prednisone
BiPAP if needed-suspect mild chronic hypercapnia
Await cultures--reviewed, thus far negative
Sputum culture if possible
Empiric antibiotics x 5 days then stop
Follow for leukocytosis and temperature curve
ProBNP 3070
H/o CHF
Maintained on daily lasix
Resume possibly increase to BID
ECHO pending
Monitor blood sugar
Insulin supplementation as needed
DVT prophylaxis-on heparin
Mucolytic's-on Mucinex
Reviewed with nursing and primary team
Recommend outpatient follow-up with pulmonary clinic.
Deconditioning is a factor, PT OT
likely to need SNF placement
Diagnostic data:
CXR 04/09/25: There are new mild bibasilar opacities which are favored to represent atelectasis, however pneumonia cannot be excluded.
Chest x-ray 04/07/25-no obvious acute infiltrate
Total time spent on this consultation/encounter __51__ minutes which includes review of history, physical exam, medications, laboratory data, personal review of imaging, extensive review of outpatient records, discussion with care team and
respiratory therapy.
Subjective Data
-
Date of Service:
Date of Service: April 13, 2025
Chief Complaint: Pulmonary Follow Up
Subjective:
Remains stable, weaning down on O2
No new complaints but remains generally weak
Objective Data
Data Reviewed
Vital Signs / I&O / Oxygen:
Vital Signs
Temp Pulse Resp BP Pulse Ox
98.4 F 63 16 121/52 99
04/13/25 07:48 04/13/25 08:51 04/13/25 07:20 04/13/25 08:51 04/13/25 07:20
Intake and Output
04/12/25 04/13/25 04/14/25
06:59 06:59 06:59
Intake Total 480 / 480 1240 / 1240
Output Total 750 / 750 200 / 200
Balance -270 / -270 1040 / 1040
SaO2 99
Nasal Cannula flow liters per 3
minute
Physical Exam
General: Comfortable and Poor Appetite
HEENT: Normocephalic and Sinus Tenderness
Cardiovascular: S1-S2 and Regular Rhythm
Respiratory: Crackles and Non-Labored Respirations
GI: Soft and Non Distended
Neurology: Awake, Alert and AO x 3
Skin: Warm and Good Color
Labs/Micro/Reports
Lab Data
04/13/25 05:14
04/13/25 05:14
Microbiology
04/07/25 19:08 Blood/Venous Blood Culture - Final
No Growth - Final Report
04/07/25 19:03 Blood/Venous Blood Culture - Final
No Growth - Final Report
04/09/25 13:55 Urine Urine Culture - Final
NO GROWTH
--- NOTE | 2025-04-13 09:47 | W.PN.HOSP.TC ---
Today's Communication/Plan
-
tried to call daughter twice, left voicemail, will try to call again later today or tomorrow
Assessment / Plan
Assessment / Plan
Physical Exam
General: Not in acute distress
HEENT: Normocephalic. Now tapered from high-flow oxygen to 4 L nasal cannula oxygen
Respiratory: Decreased Breath Sounds (Throughout both lung ragland)
Cardiac: S1/S2 and Regular Rate and Rhythm
GI: Soft, Non Tender, Non Distended and Normal Bowel Sounds
Musculoskeletal: No Cyanosis and No Edema
Skin: Warm and Dry
Neuro: AAO x 2 self and surroundings, she followed commands
Psych: Calm
Assessment/Plan
#Acute on chronic hypoxic respiratory failure secondary to COPD exacerbation with possible bronchitis or early pneumonia-no obvious infiltrate on chest x-ray
#COPD (chronically on 2 to 4 L nasal cannula)
she is feeling better
CT chest no pNA
US of legs no DVT
c/w steroid, Nebs, changed to oral prednisone
Given ABx for bronchitis. Finish course of antibiotics.
Noted to have sleep hypoxia, could be MIGUEL ANGEL
# Not in heart failure. Seen by brick burner.
-Continue PO Lasix 40mg daily for now. Does not appear significantly volume overloaded on exam.
# chronic CO2 retention, BIPAP has been used on this admission
Patient is a mouth breather, ongoing hypoxia at night requiring Ventimask. [facility], [facility] not use Ventimask. Discussed with pulmonary doctor to arrange for possible BiPAP/CPAP. Patient will need sleep study as
outpatient.
Discussed with telephonic nurse case manager
# Acute urinary Retention
-Continue bladder scans protocol
#Dementia
-Mild oriented to name place history
#Chronic anemia normocytic
-Hgb stable; appears baseline
#Urinary retention -Bladder scans/straight cath protocol ordered
DVT Prophylaxis: Heparin subq
Diet: Was initially on IDDSI 4 puree and IDDSI 2 but later, on 04/09/25, speech recommended regular solid and thin liquids for diet
Total time spent to see the patient, examine the patient, review data and lab results, discuss treatment plan with patient, pulmonary doctor, nursing staff around 55 minutes�
Anticipated Discharge: 24 - 48 hours
Subjective/Interval History
-
Date of Service: April 13, 2025
She feels better
No chest pain or abdominal pain
Objective Data
-
Labs:
Laboratory Results
04/13/25
05:14
WBC 15.8 H
Hgb 11.3 L
Hct 34.8 L
Plt Count 292
Sodium 136
Potassium 4.5
Chloride 98
Carbon Dioxide 34 H
BUN 36 H
Creatinine 1.1 H
Glucose 97
Calcium 9.1
Vital Signs:
Vital Signs
Temp Pulse Resp BP Pulse Ox
98.4 F 63 17 121/52 93
04/13/25 07:48 04/13/25 08:51 04/13/25 08:00 04/13/25 08:51 04/13/25 08:00
I&O
04/12/25 04/13/25 04/14/25
06:59 06:59 06:59
Intake Total 480 / 480 1240 / 1240
Output Total 750 / 750 200 / 200
Balance -270 / -270 1040 / 1040
[2025-04-13] MEDS: ROBITUSSIN DM 5 ML PO ×2 (09:58→17:19)
--- NOTE | 2025-04-13 10:14 | PTCARENOTE ---
Assumed care of patient this morning. She is drowsy and needed to be woken up this morning. She was oriented to herself and pleasant. She was ready for breakfast, denture care performed, and patient able to feed herself. Pt has a frequent, moist
cough, medicated with PRN Robitussin, see MAR. Pt's daughter also called and RN updated her to best of ability but would still like to talk to doctor, made aware. Assessment, care and VS as charted.
--- NOTE | 2025-04-13 15:23 | CM ---
F/U: Hospitalist met with CM stated that patient is not vent mask of 6 liters, we called [facility], they cannot provide this so Hospitalist talked with Pulmonary who stated patient can be on BIPAP until she has a sleep study where she can get
CPAP. The patient has to start using BIPAP to see if she can tolerate it.
Jimmy at [facility] adam that her supply company cannot provide this until Friday. CM informed Hospitalist and sent updates via [employer]. PLAN: Return to [facility] Friday w/ BIPAP- setting [facility].
[2025-04-13] MEDS: SYMBICORT 160/4.5 MCG INHALER 2 PUFF INH (20:24)
--- NOTE | 2025-04-13 21:31 | PTCARENOTE ---
Patient transported to 3W via wheelchair. Pt ambulated w/ assist x1 R.W. RT brought up BiPAP. Report called to Yuni MANDEL. All belongings collected and sent with the patient.
--- NOTE | 2025-04-13 23:37 | PTCARENOTE ---
Pt. wants to wait until the morning.
[2025-04-14 03:00] VITALS: BP 126/49
[2025-04-14] MEDS: SYNTHROID 75 MCG PO (06:31)
[2025-04-14] MEDS: SPIRIVA RESPIMAT 2.5 MCG 2 PUFF INH (07:25)
[2025-04-14] MEDS: SYMBICORT 160/4.5 MCG INHALER 2 PUFF INH ×2 (07:25→18:56)
[2025-04-14 07:46] VITALS: BP 154/64
[2025-04-14] MEDS: SENOKOT 8.6 MG PO (08:46)
[2025-04-14] MEDS: NORVASC 2.5 MG PO (08:46)
[2025-04-14] MEDS: REFRESH EYE DROPS (PF) 1 DROPS LEFT EYE ×4 (08:46→22:14)
[2025-04-14] MEDS: TOPROL XL 25 MG PO (08:46)
[2025-04-14] MEDS: DELTASONE 50 MG PO (08:46)
[2025-04-14] MEDS: MUCINEX 600 MG PO ×2 (08:46→22:13)
[2025-04-14] MEDS: PEPCID 20 MG PO (08:47)
[2025-04-14] MEDS: LEXAPRO 10 MG PO (08:47)
[2025-04-14] MEDS: HEPARIN 5000 UNITS SC ×2 (08:47→22:14)
[2025-04-14] MEDS: VITAMIN B-12 1000 MCG PO (08:47)
[2025-04-14] MEDS: ASPIR LOW (ENTERIC COATED) 81 MG PO (08:47)
[2025-04-14] MEDS: LASIX 40 MG PO (08:47)
[2025-04-14] MEDS: MIRALAX 17 GRAMS PO (08:53)
--- NOTE | 2025-04-14 10:26 | W.PN.HOSP.TC ---
Today's Communication/Plan
-
Await NH to set up Bipap
Assessment / Plan
Assessment / Plan
Physical Exam
General: Not in acute distress
HEENT: Normocephalic. Now tapered from high-flow oxygen to 4 L nasal cannula oxygen
Respiratory: Decreased Breath Sounds (Throughout both lung ragland)
Cardiac: S1/S2 and Regular Rate and Rhythm
GI: Soft, Non Tender, Non Distended and Normal Bowel Sounds
Musculoskeletal: No Cyanosis and No Edema
Skin: Warm and Dry
Neuro: AAO x 2 self and surroundings, she followed commands
Psych: Calm
Assessment/Plan
#Acute on chronic hypoxic respiratory failure secondary to COPD exacerbation with possible bronchitis or early pneumonia-no obvious infiltrate on chest x-ray
#COPD (chronically on 2 to 4 L nasal cannula)
she is feeling better
CT chest no pNA
US of legs no DVT
c/w steroid, Nebs, changed to oral prednisone
Given ABx for bronchitis. Finish course of antibiotics.
Noted to have sleep hypoxia, could be MIGUEL ANGEL
# Not in heart failure. Seen by travel agency manager.
-Continue PO Lasix 40mg daily for now. Does not appear significantly volume overloaded on exam.
# chronic CO2 retention, BIPAP has been used on this admission
Patient is a mouth breather, ongoing hypoxia at night requiring Ventimask. Discussed with [facility] staff, they do not use Ventimask. Discussed with pulmonary doctor to arrange for possible BiPAP/CPAP. Patient will need sleep study as
outpatient.
Discussed with clinical case manager
# Acute urinary Retention
-Continue bladder scans protocol
#Dementia
-Mild oriented to name place history
#Chronic anemia normocytic
-Hgb stable; appears baseline
#Urinary retention -Bladder scans/straight cath protocol ordered
DVT Prophylaxis: Heparin subq
Diet: Was initially on IDDSI 4 puree and IDDSI 2 but later, on 11/22/25, speech recommended regular solid and thin liquids for diet
Total time spent to see the patient, examine the patient, review data and lab results, discuss treatment plan with patient, pulmonary doctor, nursing staff around 55 minutes�
Anticipated Discharge: > 48 hours
Subjective/Interval History
-
Date of Service: April 14, 2025
No chest pain
No sob
No fevers
Objective Data
-
Vital Signs:
Vital Signs
Temp Pulse Resp BP Pulse Ox
97.2 F 63 18 154/64 100
04/14/25 07:46 04/14/25 07:46 04/14/25 07:46 04/14/25 08:46 04/14/25 07:46
I&O
04/13/25 04/14/25 04/15/25
06:59 06:59 06:59
Intake Total 1240 / 1240 0 / 0
Output Total 200 / 200
Balance 1040 / 1040 0 / 0
[2025-04-14 11:46] VITALS: BP 111/52
--- NOTE | 2025-04-14 15:42 | W.PN.PUL3 ---
Today's Communication / Plan
-
Doing well, she is on 3L (BL use of 2-4L), can wean further as tolerated
Titrate supplemental O2 flow rate to keep SpO2 88-95%
Home O2 assessment prior to discharge if patient strong enough to safely ambulate
Transitioned to PO prednisone taper
s/p Abx completion on 04/12
PT/OT evals ongoing - -> PT rec'd skilled rehab
Pulmonary toilet - start Mucomyst with vest therapy
Continue Symbicort + Spiriva
Discharge planning otherwise per team
Assessment
-
89-year-old former smoking female from [facility] with a history of oxygen dependent COPD, CHF, dementia presented with increasing shortness of breath felt to have COPD exacerbation and pulmonary consulted for COPD exacerbation/shortness of
breath 04/08/2025.
Acute on top of chronic hypoxemic respiratory failure due to COPD exacerbation
COPD exacerbation
Pneumonia-custodial patient
[id number]-3.5
Chronic hypercapnia
Hyperglycemia
Difficulty expectorating secretions
Conditions present prior to admission:
COPD on chronic oxygen 2 to 4 L.
Chronic diastolic HF/CAD
AAA
HTN
HLD
CKD 3
Hypothyroidism
Depression
GERD/constipation
Former smoker.
Dementia.
Plan
Respiratory decompensation likely related to COPD exacerbation with possible bronchitis or early pneumonia-no obvious infiltrate on chest x-ray
CT chest from 04/11/2025 showed plugging in the posteromedial lower lobes due to secretions/mucous - -> this shows the importance of pulmonary toilet in this case to improve her dyspnea
Follow-up chest x-ray 04/09 more suggestive of bibasilar atelectasis rather than pneumonia.
She is weaned to 3L, satting >95%--continue weaning as tolerated
Baseline use between 2-4L
Supplemental oxygen as needed-requirement decreasing, off high flow, currently on supplemental oxygen at 3 L
Aspiration precautions
Currently on Spiriva and Symbicort 160 mcg
At home she is prescribed Stiolto Respimat with DuoNebs TID- -> home inhalers/nebs can be resumed upon discharge
she has been on nebulized 3% TID from 04/09 - 04/13 - -> start mucomyst with vest therapy QID
Continue mucolytics with mucinex twice daily; flutter valve
Solu-Medrol 40 mg daily--transitioned to PO prednisone - taper as she clinically improves
BiPAP with sleep due to mild chronic hypercapnia
Await cultures--reviewed, thus far negative
Sputum culture if possible
She is s/p Rocephin + doxycycline from 04/07 - 04/12
Follow for leukocytosis and temperature curve
ProBNP 3070
H/o CHF
Maintained on daily PO lasix
Resume possibly increase to BID
TTE performed 04/08/2025 showed preserved LVEF at 60 to 65% with mild mitral stenosis with normal LV chamber size with mild LVH and normal RV size/function with normal PASP at 17 mmHg
Monitor blood sugar with goal >100 and <180
Insulin supplementation as needed
DVT prophylaxis-on heparin SQ
Reviewed with nursing and primary team
Recommend outpatient follow-up with pulmonary clinic.
Deconditioning is a factor, PT OT
likely to need SNF placement - -> PT rec'd skilled rehab
Pulmonary service will continue to follow along
Diagnostic data:
CXR 04/09/25: There are new mild bibasilar opacities which are favored to represent atelectasis, however pneumonia cannot be excluded.
Chest x-ray 04/07/25-no obvious acute infiltrate
Total time spent on this consultation/encounter __42__ minutes which includes review of history, physical exam, medications, laboratory data, personal review of imaging, extensive review of outpatient records, discussion with care team and
respiratory therapy.
Subjective Data
-
Date of Service:
Date of Service: April 14, 2025
Chief Complaint: Pulmonary Follow Up
Subjective:
Patient was seen and evaluated earlier this afternoon (late note entry). She continues to have thick secretions with difficulty coughing it out. She wore BiPAP overnight on 04/22. Afebrile overnight. She otherwise feels okay at rest, with no
chest pain and improved SOB. She would like something to help bring up her phlegm easier.
Review of Systems
General: Other (Negative unless mentioned above)
Objective Data
Data Reviewed
Vital Signs / I&O / Oxygen:
Vital Signs
Temp Pulse Resp BP Pulse Ox
97.2 F 63 18 154/64 100
04/14/25 07:46 04/14/25 07:46 04/14/25 07:46 04/14/25 08:46 04/14/25 07:46
Intake and Output
04/13/25 04/14/25 04/15/25
06:59 06:59 06:59
Intake Total 1240 / 1240 0 / 0
Output Total 200 / 200
Balance 1040 / 1040 0 / 0
SaO2 100
Nasal Cannula flow liters per 2
minute
Physical Exam
General: Respiratory Distress (n), Comfortable and Poor Appetite
HEENT: Normocephalic and Sinus Tenderness
Cardiovascular: S1-S2, Regular Rhythm and Peripheral Edema (n)
Respiratory: Wheeze (n), Crackles (Bilateral), Rhonchi (n) and Non-Labored Respirations
GI: Soft, Non Distended and Non Tender
Neurology: Awake, Alert and Tremors (n)
Skin: Warm and Good Color
Labs/Micro/Reports
Lab Data
04/13/25 05:14
04/13/25 05:14
Microbiology
04/07/25 19:08 Blood/Venous Blood Culture - Final
No Growth - Final Report
04/07/25 19:03 Blood/Venous Blood Culture - Final
No Growth - Final Report
[2025-04-14 16:29] VITALS: BP 105/45
[2025-04-14] MEDS: MUCOMYST 20% 2 ML INH (18:49)
[2025-04-14] MEDS: VENTOLIN NEBULES 2.5 MG INH (18:55)
[2025-04-14 19:15] VITALS: BP 102/45
[2025-04-14 23:21] VITALS: BP 119/53
[2025-04-15] VITALS (7 sets, daily range): BP systolic 110–148; BP diastolic 43–68; PULSE 2–77; O2SAT 94; BMI 24.3
[2025-04-15] MEDS: SYNTHROID 75 MCG PO (06:33)
[2025-04-15] MEDS: SYMBICORT 160/4.5 MCG INHALER 2 PUFF INH ×2 (07:30→18:15)
[2025-04-15] MEDS: VENTOLIN NEBULES 2.5 MG INH ×4 (07:30→18:16)
[2025-04-15] MEDS: SPIRIVA RESPIMAT 2.5 MCG 2 PUFF INH (07:31)
[2025-04-15] MEDS: MUCOMYST 20% 2 ML INH ×4 (07:31→18:14)
[2025-04-15] MEDS: VITAMIN B-12 1000 MCG PO (08:58)
[2025-04-15] MEDS: LEXAPRO 10 MG PO (08:58)
[2025-04-15] MEDS: MUCINEX 600 MG PO ×2 (08:58→20:06)
[2025-04-15] MEDS: MIRALAX 17 GRAMS PO (08:58)
[2025-04-15] MEDS: NORVASC 2.5 MG PO (08:58)
[2025-04-15] MEDS: ASPIR LOW (ENTERIC COATED) 81 MG PO (08:59)
[2025-04-15] MEDS: TOPROL XL 25 MG PO (08:59)
[2025-04-15] MEDS: HEPARIN 5000 UNITS SC ×2 (08:59→20:06)
[2025-04-15] MEDS: LASIX 40 MG PO (08:59)
[2025-04-15] MEDS: PEPCID 20 MG PO (08:59)
[2025-04-15] MEDS: DELTASONE 50 MG PO (08:59)
[2025-04-15] MEDS: SENOKOT 8.6 MG PO (08:59)
[2025-04-15] MEDS: REFRESH EYE DROPS (PF) 1 DROPS LEFT EYE ×4 (09:03→20:27)
--- NOTE | 2025-04-15 09:14 | W.PN.HOSP.TC ---
Today's Communication/Plan
-
Await Bi-pap set up in [place]
Assessment / Plan
Assessment / Plan
Physical Exam
General: Not in acute distress
HEENT: Normocephalic. Now tapered from high-flow oxygen to 4 L nasal cannula oxygen
Respiratory: Decreased Breath Sounds (Throughout both lung ragland)
Cardiac: S1/S2 and Regular Rate and Rhythm
GI: Soft, Non Tender, Non Distended and Normal Bowel Sounds
Musculoskeletal: No Cyanosis and No Edema
Skin: Warm and Dry
Neuro: AAO x 2 self and surroundings, she followed commands
Psych: Calm
Assessment/Plan
#Acute on chronic hypoxic respiratory failure secondary to COPD exacerbation with possible bronchitis or early pneumonia-no obvious infiltrate on chest x-ray
#COPD (chronically on 2 to 4 L nasal cannula)
she is feeling better
CT chest no pNA
US of legs no DVT
c/w steroid, Nebs, changed to oral prednisone
Given ABx for bronchitis. Finish course of antibiotics.
Noted to have sleep hypoxia, could be MIGUEL ANGEL
# Not in heart failure. Seen by studio technician.
-Continue PO Lasix 40mg daily for now. Does not appear significantly volume overloaded on exam.
# chronic CO2 retention, BIPAP has been used on this admission
Patient is a mouth breather, ongoing hypoxia at night requiring Ventimask. [facility], [facility] not use [facility]imask. Discussed with pulmonary doctor to arrange for possible BiPAP/CPAP. Patient will need sleep study as
outpatient.
Discussed with oil field caser
# Acute urinary Retention
-Continue bladder scans protocol
#Dementia
-Mild oriented to name place history
#Chronic anemia normocytic
-Hgb stable; appears baseline
#Urinary retention -Bladder scans/straight cath protocol ordered
DVT Prophylaxis: Heparin subq
Diet: Was initially on IDDSI 4 puree and IDDSI 2 but later, on 04/09/25, speech recommended regular solid and thin liquids for diet
Total time spent to see the patient, examine the patient, review data and lab results, discuss treatment plan with patient, pulmonary doctor, nursing staff around 55 minutes�
Anticipated Discharge: > 48 hours
Subjective/Interval History
-
Date of Service: April 15, 2025
No complaints
Objective Data
-
Vital Signs:
Vital Signs
Temp Pulse Resp BP Pulse Ox
98.8 F 64 16 148/56 96
04/15/25 07:00 04/15/25 08:58 04/15/25 07:46 04/15/25 08:58 04/15/25 07:46
I&O
04/14/25 04/15/25 04/16/25
06:59 06:59 06:59
Intake Total 0 / 0 1919
Balance 0 / 0 1919
--- NOTE | 2025-04-15 09:22 | W.PN.PUL3 ---
Today's Communication / Plan
-
Remains on 2L NC, at baseline O2 use
Prednisone taper
Continue PAP at night, awaiting home set up likely not until Friday
OP FU to be arranged
Discharge planning otherwise per team
No further recs, will sign off at this time, please call with questions
Assessment
-
89-year-old former smoking female from [facility] with a history of oxygen dependent COPD, CHF, dementia presented with increasing shortness of breath felt to have COPD exacerbation and pulmonary consulted for COPD exacerbation/shortness of
breath 04/08/2025.
Acute on top of chronic hypoxemic respiratory failure due to COPD exacerbation
COPD exacerbation
Pneumonia-custodial patient
Lbobnu-[id number]-1.5
Chronic hypercapnia
Hyperglycemia
Difficulty expectorating secretions
Conditions present prior to admission:
COPD on chronic oxygen 2 to 4 L.
Chronic diastolic HF/CAD
AAA
HTN
HLD
CKD 3
Hypothyroidism
Depression
GERD/constipation
Former smoker.
Dementia.
Plan
Respiratory decompensation likely related to COPD exacerbation with possible bronchitis or early pneumonia-no obvious infiltrate on chest x-ray
CT chest from 04/11/2025 showed plugging in the posteromedial lower lobes due to secretions/mucous - -> this shows the importance of pulmonary toilet in this case to improve her dyspnea
Follow-up chest x-ray 04/09 more suggestive of bibasilar atelectasis rather than pneumonia.
She is weaned to 3L, satting >95%--continue weaning as tolerated
Baseline use between 2-4L
Supplemental oxygen as needed-requirement decreasing, off high flow, currently on supplemental oxygen at 2 L
Aspiration precautions
Currently on Spiriva and Symbicort 160 mcg
At home she is prescribed Stiolto Respimat with DuoNebs TID- -> home inhalers/nebs can be resumed upon discharge
she has been on nebulized 3% TID from 04/09 - 04/13 - -> start mucomyst with vest therapy QID
Continue mucolytics with mucinex twice daily; flutter valve
Solu-Medrol 40 mg daily--transitioned to PO prednisone - taper as she clinically improves
BiPAP with sleep due to mild chronic hypercapnia
Awaiting home set up
Await cultures--reviewed, thus far negative
Completed Rocephin + doxycycline from 04/07 - 04/12
Follow for leukocytosis and temperature curve
ProBNP 3070
H/o CHF
Maintained on daily PO lasix
Resume possibly increase to BID
TTE performed 04/08/2025 showed preserved LVEF at 60 to 65% with mild mitral stenosis with normal LV chamber size with mild LVH and normal RV size/function with normal PASP at 17 mmHg
Monitor blood sugar with goal >100 and <180
Insulin supplementation as needed
DVT prophylaxis-on heparin SQ
Reviewed with nursing and primary team
Recommend outpatient follow-up with pulmonary clinic.
Deconditioning is a factor, PT OT
likely to need SNF placement - -> PT rec'd skilled rehab
Discharge planning pending BIPAP set up
Diagnostic data:
CXR 04/09/25: There are new mild bibasilar opacities which are favored to represent atelectasis, however pneumonia cannot be excluded.
Chest x-ray 04/07/25-no obvious acute infiltrate
Total time spent on this consultation/encounter __42__ minutes which includes review of history, physical exam, medications, laboratory data, personal review of imaging, extensive review of outpatient records, discussion with care team and
respiratory therapy.
Subjective Data
-
Date of Service:
Date of Service: April 15, 2025
Chief Complaint: Pulmonary Follow Up
Subjective:
No new complaints, weaned to 2L
PAP at night
Objective Data
Data Reviewed
Vital Signs / I&O / Oxygen:
Vital Signs
Temp Pulse Resp BP Pulse Ox
98.8 F 64 16 148/56 96
04/15/25 07:00 04/15/25 08:58 04/15/25 07:46 04/15/25 08:58 04/15/25 07:46
Intake and Output
04/14/25 04/15/25 04/16/25
06:59 06:59 06:59
Intake Total 0 / 0 1919
Balance 0 / 0 1919
SaO2 96
Nasal Cannula flow liters per 2
minute
Physical Exam
General: Respiratory Distress (n), Comfortable and Poor Appetite
HEENT: Normocephalic and Sinus Tenderness
Cardiovascular: S1-S2, Regular Rhythm and Peripheral Edema (n)
Respiratory: Wheeze (n), Crackles (Bilateral), Rhonchi (n) and Non-Labored Respirations
GI: Soft, Non Distended and Non Tender
Neurology: Awake, Alert and Tremors (n)
Skin: Warm and Good Color
Labs/Micro/Reports
Lab Data
04/13/25 05:14
04/13/25 05:14
Microbiology
04/07/25 19:08 Blood/Venous Blood Culture - Final
No Growth - Final Report
04/07/25 19:03 Blood/Venous Blood Culture - Final
No Growth - Final Report
--- NOTE | 2025-04-15 14:46 | CM ---
CM following for discharge planning. Pt lives at [facility]. Pt with new Bipap at night; [facility] cannot obtain BIPAP until Friday. CM informed Hospitalist and sent updates via carport.
PLAN: Return to [facility] on Friday w/ BIPAP.
[2025-04-15] MEDS: ROBITUSSIN DM 5 ML PO (18:42)
[2025-04-16] VITALS (7 sets, daily range): BP systolic 94–155; BP diastolic 43–87; PULSE 2; BMI 24.2
[2025-04-16] MEDS: SYNTHROID 75 MCG PO (05:54)
[2025-04-16] MEDS: MUCOMYST 20% 2 ML INH ×2 (07:25→21:01)
[2025-04-16] MEDS: SYMBICORT 160/4.5 MCG INHALER 2 PUFF INH ×2 (07:26→21:02)
[2025-04-16] MEDS: VENTOLIN NEBULES 2.5 MG INH ×2 (07:26→21:01)
[2025-04-16] MEDS: SPIRIVA RESPIMAT 2.5 MCG 2 PUFF INH (07:26)
[2025-04-16] MEDS: SENOKOT 8.6 MG PO (09:26)
[2025-04-16] MEDS: DELTASONE 40 MG PO (09:26)
[2025-04-16] MEDS: LEXAPRO 10 MG PO (09:26)
[2025-04-16] MEDS: VITAMIN B-12 1000 MCG PO (09:26)
[2025-04-16] MEDS: TOPROL XL 25 MG PO (09:26)
[2025-04-16] MEDS: TYLENOL 650 MG PO (09:27)
[2025-04-16] MEDS: LASIX 40 MG PO (09:27)
[2025-04-16] MEDS: REFRESH EYE DROPS (PF) 1 DROPS LEFT EYE ×4 (09:28→20:08)
[2025-04-16] MEDS: NORVASC 2.5 MG PO (09:28)
[2025-04-16] MEDS: ASPIR LOW (ENTERIC COATED) 81 MG PO (09:28)
[2025-04-16] MEDS: MUCINEX 600 MG PO ×2 (09:28→20:05)
[2025-04-16] MEDS: PEPCID 20 MG PO (09:28)
[2025-04-16] MEDS: HEPARIN 5000 UNITS SC ×2 (09:29→20:06)
[2025-04-16] MEDS: MIRALAX 17 GRAMS PO (09:29)
--- NOTE | 2025-04-16 09:35 | W.PN.HOSP.TC ---
Today's Communication/Plan
-
dc on Friday
Assessment / Plan
Assessment / Plan
Physical Exam
General: Not in acute distress
HEENT: Normocephalic. Now tapered from high-flow oxygen to 4 L nasal cannula oxygen
Respiratory: Decreased Breath Sounds (Throughout both lung ragland)
Cardiac: S1/S2 and Regular Rate and Rhythm
GI: Soft, Non Tender, Non Distended and Normal Bowel Sounds
Musculoskeletal: No Cyanosis and No Edema
Skin: Warm and Dry
Neuro: AAO x 2 self and surroundings, she followed commands
Psych: Calm
Assessment/Plan
#Acute on chronic hypoxic respiratory failure secondary to COPD exacerbation with possible bronchitis or early pneumonia-no obvious infiltrate on chest x-ray
#COPD (chronically on 2 to 4 L nasal cannula)
she is feeling better
CT chest no pNA
US of legs no DVT
c/w steroid, Nebs, changed to oral prednisone
Given ABx for bronchitis. Finish course of antibiotics.
Noted to have sleep hypoxia, could be MIGUEL ANGEL
# Not in heart failure. Seen by social security benefits interviewer.
-Continue PO Lasix 40mg daily for now. Does not appear significantly volume overloaded on exam.
# chronic CO2 retention, BIPAP has been used on this admission
Patient is a mouth breather, ongoing hypoxia at night requiring Ventimask. Discussed with [facility] staff, they do not use Ventimask. Discussed with pulmonary doctor to arrange for possible BiPAP/CPAP. Patient will need sleep study as
outpatient.
Discussed with gearcase assembler
# Acute urinary Retention
-Continue bladder scans protocol
#Dementia
-Mild oriented to name place history
#Chronic anemia normocytic
-Hgb stable; appears baseline
#Urinary retention -Bladder scans/straight cath protocol ordered
DVT Prophylaxis: Heparin subq
Diet: Was initially on IDDSI 4 puree and IDDSI 2 but later, on 04/09/25, speech recommended regular solid and thin liquids for diet
Total time spent to see the patient, examine the patient, review data and lab results, discuss treatment plan with patient, pulmonary doctor, nursing staff around 55 minutes�
Anticipated Discharge: 24 - 48 hours
Subjective/Interval History
-
Date of Service: April 16, 2025
No chest pain or sob
Used Bi pap last night
Objective Data
-
Vital Signs:
Vital Signs
Temp Pulse Resp BP Pulse Ox
98.3 F 62 18 155/87 100
04/16/25 07:00 04/16/25 09:26 04/16/25 07:32 04/16/25 07:00 04/16/25 07:32
I&O
04/15/25 04/16/25 04/17/25
06:59 06:59 06:59
Intake Total 1919 240 / 240
Balance 1919 / 192 240 / 240
[2025-04-17] VITALS (7 sets, daily range): BP systolic 117–132; BP diastolic 46–60; PULSE 2–70; BMI 25.2
[2025-04-17] MEDS: SYNTHROID 75 MCG PO (05:50)
[2025-04-17] MEDS: MUCOMYST 20% 2 ML INH ×2 (07:55→16:46)
[2025-04-17] MEDS: SPIRIVA RESPIMAT 2.5 MCG 2 PUFF INH (07:55)
[2025-04-17] MEDS: SYMBICORT 160/4.5 MCG INHALER 2 PUFF INH ×2 (07:55→16:50)
[2025-04-17] MEDS: VENTOLIN NEBULES 2.5 MG INH ×2 (07:56→16:48)
[2025-04-17] MEDS: MIRALAX 17 GRAMS PO (09:10)
[2025-04-17] MEDS: REFRESH EYE DROPS (PF) 1 DROPS LEFT EYE ×4 (09:10→19:56)
[2025-04-17] MEDS: DELTASONE 40 MG PO (09:10)
[2025-04-17] MEDS: LEXAPRO 10 MG PO (09:10)
[2025-04-17] MEDS: SENOKOT 8.6 MG PO (09:10)
[2025-04-17] MEDS: MUCINEX 600 MG PO ×2 (09:10→19:56)
[2025-04-17] MEDS: ASPIR LOW (ENTERIC COATED) 81 MG PO (09:10)
[2025-04-17] MEDS: TYLENOL 650 MG PO (09:10)
[2025-04-17] MEDS: NORVASC 2.5 MG PO (09:13)
[2025-04-17] MEDS: TOPROL XL 25 MG PO (09:13)
[2025-04-17] MEDS: VITAMIN B-12 1000 MCG PO (09:14)
[2025-04-17] MEDS: LASIX 40 MG PO (09:14)
[2025-04-17] MEDS: PEPCID 20 MG PO (09:14)
[2025-04-17] MEDS: HEPARIN 5000 UNITS SC ×2 (09:15→19:56)
--- NOTE | 2025-04-17 09:23 | W.PN.HOSP.TC ---
Today's Communication/Plan
-
IV Lasix
Assessment / Plan
Assessment / Plan
Physical Exam
General: Not in acute distress
HEENT: Normocephalic. Now tapered from high-flow oxygen to 4 L nasal cannula oxygen
Respiratory: Decreased Breath Sounds (Throughout both lung ragland)
Cardiac: S1/S2 and Regular Rate and Rhythm
GI: Soft, Non Tender, Non Distended and Normal Bowel Sounds
Musculoskeletal: No Cyanosis and No Edema
Skin: Warm and Dry
Neuro: AAO x 2 self and surroundings, she followed commands
Psych: Calm
Assessment/Plan
#Acute on chronic hypoxic respiratory failure secondary to COPD exacerbation with possible bronchitis or early pneumonia-no obvious infiltrate on chest x-ray
#COPD (chronically on 2 to 4 L nasal cannula)
she is feeling better
CT chest no pNA
US of legs no DVT
c/w steroid, Nebs, changed to oral prednisone
Given ABx for bronchitis. Finish course of antibiotics.
Noted to have sleep hypoxia, could be MIGUEL ANGEL
# Not in heart failure. Seen by hospital pharmacist.
-Continue PO Lasix 40mg daily for now. Does not appear significantly volume overloaded on exam. She had gained weight, continue to reduce Steroid dose, given extra dose of Lasix
# chronic CO2 retention, BIPAP has been used on this admission
Patient is a mouth breather, ongoing hypoxia at night requiring Ventimask. Discussed with skilled nursing staff, they do not use Ventimask. Discussed with pulmonary doctor to arrange for possible BiPAP/CPAP. Patient will need sleep study as
outpatient.
Discussed with telehealth case manager
# Acute urinary Retention
-Continue bladder scans protocol
#Dementia
-Mild oriented to name place history
#Chronic anemia normocytic
-Hgb stable; appears baseline
#Urinary retention -Bladder scans/straight cath protocol ordered
DVT Prophylaxis: Heparin subq
Diet: Was initially on IDDSI 4 puree and IDDSI 2 but later, on 04/09/25, speech recommended regular solid and thin liquids for diet
Total time spent to see the patient, examine the patient, review data and lab results, discuss treatment plan with patient, pulmonary doctor, nursing staff around 55 minutes�
Anticipated Discharge: Within 24 hours
Subjective/Interval History
-
Date of Service: April 17, 2025
No sob
No fevers
No chest pain
No abdominal pain
Objective Data
-
Labs:
Laboratory Results
04/17/25
09:21
Sodium Pending
Potassium Pending
Chloride Pending
Carbon Dioxide Pending
BUN Pending
Creatinine Pending
Glucose Pending
Calcium Pending
Vital Signs:
Vital Signs
Temp Pulse Resp BP Pulse Ox
98.0 F 70 16 132/51 93
04/17/25 07:00 04/17/25 08:02 04/17/25 08:02 04/17/25 07:00 04/17/25 08:02
I&O
04/16/25 04/17/25 04/18/25
06:59 06:59 06:59
Intake Total 240 / 240 660 / 660
Balance 240 / 240 660 / 660
[2025-04-17 10:26] LABS: Blood Urea Nitrogen 29 mg/dl (7-17); Calcium 9.3 mg/dl (8.4-10.2); Carbon Dioxide 33 mmol/L (22-30); Chloride 101 mmol/L (98-107); Estimated Creatinine Clearance 36 ml/min; Glucose 123 mg/dl (70-99); Potassium 4.6 mmol/L (3.5-5.1); Sodium 137 mmol/L (135-145); eGFR 54.53
[2025-04-17] MEDS: TESSALON PERLES 100 MG PO (11:41)
[2025-04-17] MEDS: LASIX 40 MG IV (11:42)
--- NOTE | 2025-04-17 18:24 | PTCARENOTE ---
Pt out of bed to Bathroom with minimal one assist walker. x2 no issues. Pt had been lying in bed all day with gross urinary incontinence.
[2025-04-18] MEDS: SYNTHROID 75 MCG PO (05:12)
[2025-04-18 06:00] VITALS: BMI 24.2
[2025-04-18 06:32] LABS: Hematocrit 31.9 % (37.0-47.0); Hemoglobin 10.4 g/dL (12.0-16.0); Mean Corp Hgb Conc. 32.6 g/dL (33.0-37.0); Mean Corpuscular Volume 92.7 fL (81.0-99.0); Platelet Count 245 10^3/uL (130-400); Red Cell Dist. Width 15.6 % (11.5-14.5)
[2025-04-18 07:00] VITALS: BP 143/59
[2025-04-18 07:00] LABS: Blood Urea Nitrogen 32 mg/dl (7-17); Calcium 9.0 mg/dl (8.4-10.2); Chloride 97 mmol/L (98-107); Estimated Creatinine Clearance 32 ml/min; Glucose 100 mg/dl (70-99); Potassium 4.4 mmol/L (3.5-5.1); Sodium 135 mmol/L (135-145); eGFR 48.63
[2025-04-18 07:10] LABS: Carbon Dioxide 34 mmol/L (22-30)
[2025-04-18] MEDS: MUCOMYST 20% 2 ML INH ×2 (07:26→19:16)
[2025-04-18] MEDS: SPIRIVA RESPIMAT 2.5 MCG 2 PUFF INH (07:27)
[2025-04-18] MEDS: SYMBICORT 160/4.5 MCG INHALER 2 PUFF INH ×2 (07:27→19:16)
[2025-04-18] MEDS: VENTOLIN NEBULES 2.5 MG INH ×2 (07:27→19:16)
[2025-04-18] MEDS: DELTASONE 30 MG PO (08:41)
[2025-04-18] MEDS: VITAMIN B-12 1000 MCG PO (08:41)
[2025-04-18] MEDS: SENOKOT 8.6 MG PO (08:42)
[2025-04-18] MEDS: TOPROL XL 25 MG PO (08:42)
[2025-04-18] MEDS: ASPIR LOW (ENTERIC COATED) 81 MG PO (08:42)
[2025-04-18] MEDS: LEXAPRO 10 MG PO (08:43)
[2025-04-18] MEDS: MUCINEX 600 MG PO ×2 (08:43→20:50)
[2025-04-18] MEDS: PEPCID 20 MG PO (08:43)
[2025-04-18] MEDS: REFRESH EYE DROPS (PF) 1 DROPS LEFT EYE ×4 (08:43→20:51)
[2025-04-18] MEDS: MIRALAX 17 GRAMS PO (08:43)
[2025-04-18] MEDS: LASIX 40 MG PO (08:43)
[2025-04-18] MEDS: NORVASC 2.5 MG PO (08:43)
[2025-04-18] MEDS: HEPARIN 5000 UNITS SC ×2 (08:43→20:50)
--- NOTE | 2025-04-18 09:45 | W.PN.HOSP.TC ---
Today's Communication/Plan
-
Per case management, patient can be discharged to [facility] tomorrow
Assessment / Plan
Assessment / Plan
Physical Exam
General: Not in acute distress
HEENT: Normocephalic. Now tapered from high-flow oxygen to 3 L nasal cannula oxygen
Respiratory: Decreased Breath Sounds (Throughout both lung ragland)
Cardiac: S1/S2 and Regular Rate and Rhythm
GI: Soft, Non Tender, Non Distended and Normal Bowel Sounds
Musculoskeletal: No Cyanosis and No Edema
Skin: Warm and Dry
Neuro: AAO x 2 self and surroundings, she followed commands
Psych: Calm
Assessment/Plan
#Acute on chronic hypoxic respiratory failure secondary to COPD exacerbation with possible bronchitis or early pneumonia-no obvious infiltrate on chest x-ray
#COPD (chronically on 2 to 4 L nasal cannula)
she is feeling better
CT chest no pneumonia
US of legs with no DVT
c/w steroid, Nebs, changed to oral prednisone
Given ABx for bronchitis. Finish course of antibiotics.
Noted to have sleep hypoxia, could be MIGUEL ANGEL
# Not in heart failure. Seen by washer repairman.
-Continue PO Lasix 40mg daily for now. Does not appear significantly volume overloaded on exam. She had gained weight, continue to reduce Steroid dose, given extra dose of Lasix
# chronic CO2 retention, BIPAP has been used on this admission
Patient is a mouth breather, ongoing hypoxia at night requiring Ventimask. Discussed with custodial staff, they do not use Ventimask. Discussed with pulmonary doctor to arrange for possible BiPAP/CPAP. Patient will need sleep study as
outpatient.
Discussed with gearcase assembler
# Acute urinary Retention
-Continue bladder scans protocol
#Dementia
-Mild oriented to name place history
#Chronic anemia normocytic
-Hgb stable; appears baseline
#Urinary retention -Bladder scans/straight cath protocol ordered
DVT Prophylaxis: Heparin subq
Diet: Was initially on IDDSI 4 puree and IDDSI 2 but later, on 04/09/25, speech recommended regular solid and thin liquids for diet
Anticipated Discharge: Within 24 hours
Subjective/Interval History
-
Date of Service: April 18, 2025
Patient was seen and examined. She denied any new chest pain, SOB or any other complaints.
Objective Data
-
Labs:
Laboratory Results
04/18/25
06:06
WBC 17.7 H
Hgb 10.4 L
Hct 31.9 L
Plt Count 245
Sodium 135
Potassium 4.4
Chloride 97 L
Carbon Dioxide 34 H
BUN 32 H
Creatinine 1.1 H
Glucose 100 H
Calcium 9.0
Vital Signs:
Vital Signs
Temp Pulse Resp BP Pulse Ox
97.9 F 63 16 143/59 97
04/18/25 07:00 04/18/25 07:30 04/18/25 07:30 04/18/25 07:00 04/18/25 07:30
I&O
04/17/25 04/18/25 04/19/25
06:59 06:59 06:59
Intake Total 660 / 660 960 / 960
Balance 660 / 660 960 / 960
[2025-04-18 11:48] VITALS: BP 117/55; PULSE 68; O2SAT 98
[2025-04-18 15:00] VITALS: BP 108/44
--- NOTE | 2025-04-18 16:49 | CM ---
CM continues to follow for discharge back to [facility]. Await discharge order; probable discharge tomorrow.
--- NOTE | 2025-04-18 16:53 | CM ---
Pt has been accepted for transfer to [facility] tomorrow. Daughter notified of same and is agreeable. Will need ambulance transport arranged for discharge.
[facility] Report: [phone]
[facility]
[2025-04-18 21:18] VITALS: PULSE 2
[2025-04-18 23:00] VITALS: BP 119/55
[2025-04-19 03:35] VITALS: PULSE 2
[2025-04-19 05:05] VITALS: BMI 22.7
[2025-04-19] MEDS: SYNTHROID 75 MCG PO (07:12)
[2025-04-19] MEDS: MUCOMYST 20% 2 ML INH (07:25)
[2025-04-19] MEDS: SYMBICORT 160/4.5 MCG INHALER 2 PUFF INH (07:25)
[2025-04-19] MEDS: SPIRIVA RESPIMAT 2.5 MCG 2 PUFF INH (07:25)
[2025-04-19] MEDS: VENTOLIN NEBULES 2.5 MG INH (07:27)
--- NOTE | 2025-04-19 07:39 | W.PN.HOSP.TC ---
Today's Communication/Plan
-
Discharge today
Assessment / Plan
Assessment / Plan
Physical Exam
General: Not in acute distress
HEENT: Normocephalic. Now tapered from high-flow oxygen to 3 L nasal cannula oxygen
Respiratory: Decreased Breath Sounds (Throughout both lung [place])
Cardiac: S1/S2 and Regular Rate and Rhythm
GI: Soft, Non Tender, Non Distended and Normal Bowel Sounds
Musculoskeletal: No Cyanosis and No Edema
Skin: Warm and Dry
Neuro: AAO x 2 self and surroundings, she followed commands
Psych: Calm
Assessment/Plan
#Acute on chronic hypoxic respiratory failure secondary to COPD exacerbation with possible bronchitis or early pneumonia-no obvious infiltrate on chest x-ray
#COPD (chronically on 2 to 4 L nasal cannula)
she is feeling better
CT chest no pneumonia
US of legs with no DVT
c/w steroid, Nebs, changed to oral prednisone: 30 mg daily x 2 more days, followed by 20 mg daily x 4 days, followed by 10 mg daily x 4 days
Given ABx for bronchitis. Finish course of antibiotics.
Noted to have sleep hypoxia, could be MIGUEL ANGEL
On discharge, continue home Stiolto Respimat with DuoNebs TID, but stop current inpatient Spiriva and Symbicort 160 mcg (I confirmed, via [place] [employer] communication, this discharge regimen with Dr. Helena aPinting, on 04/19/25)
Continue mucolytics with Mucinex twice daily
Continue flutter valve
Strict Aspiration precautions
# Not in heart failure. Seen by adaptive physical education specialist.
-Continue PO Lasix 40mg daily for now. Does not appear significantly volume overloaded on exam. She had gained weight, continue to reduce Steroid dose, given extra dose of Lasix
# chronic CO2 retention, BIPAP has been used on this admission
Patient is a mouth breather, ongoing hypoxia at night requiring Ventimask. Dr. Bowers discussed with half-way staff, they do not use Ventimask. Dr. Bowers discussed with pulmonary doctor to arrange for possible BiPAP/CPAP. Patient will need
sleep study as outpatient.
Discussed with case liner
Continue using BiPAP with sleeping
#Plugging in the posteromedial lower lobes due to secretions/mucous
-Very important to continue pulmonary toilet in this case to improve her dyspnea
#History of Coronary Artery Disease with stenting
-Continue Aspirin 81 mg daily
# Acute urinary Retention
-Continue bladder scans protocol
#Dementia
-Mild oriented to name place history
#Chronic anemia normocytic
-Hgb stable; appears baseline
#Urinary retention -Bladder scans/straight cath protocol ordered
#Hypertension
-Continue Amlodipine
-Continue Metoprolol
DVT Prophylaxis: Heparin subq
Diet: Was initially on IDDSI 4 puree and IDDSI 2 but later, on 04/09/25, speech recommended regular solid and thin liquids for diet
More than 30 minutes spent in discharge including
Final examination of the patient
Summarizing hospital stay
Instructions for continuing care to all relevant caregivers
Preparation of discharge records, prescriptions, and referral forms
Total time spent (in minutes): 39
Anticipated Discharge: Today
Subjective/Interval History
-
Date of Service: April 19, 2025
Patient was seen and examined. She denied any chest pain, SOB or any other issues or complaints.
Objective Data
-
Vital Signs:
Vital Signs
Temp Pulse Resp BP Pulse Ox
96.6 F L 61 16 119/55 95
04/18/25 23:00 04/19/25 07:31 04/19/25 07:31 04/18/25 23:00 04/19/25 07:31
I&O
04/18/25 04/19/25 04/20/25
06:59 06:59 06:59
Intake Total 960 / 960 620 / 620 480 / 480
Balance 960 / 960 620 / 620 480 / 480
[2025-04-19 08:16] VITALS: BP 135/54
[2025-04-19] MEDS: ASPIR LOW (ENTERIC COATED) 81 MG PO (08:35)
[2025-04-19] MEDS: VITAMIN B-12 1000 MCG PO (08:35)
[2025-04-19] MEDS: LEXAPRO 10 MG PO (08:35)
[2025-04-19] MEDS: NORVASC 2.5 MG PO (08:35)
[2025-04-19] MEDS: MIRALAX 17 GRAMS PO (08:35)
[2025-04-19] MEDS: LASIX 40 MG PO (08:35)
[2025-04-19] MEDS: MUCINEX 600 MG PO (08:35)
[2025-04-19] MEDS: PEPCID 20 MG PO (08:35)
[2025-04-19] MEDS: DELTASONE 30 MG PO (08:36)
[2025-04-19] MEDS: REFRESH EYE DROPS (PF) 1 DROPS LEFT EYE ×2 (08:36→12:24)
[2025-04-19] MEDS: SENOKOT 8.6 MG PO (08:36)
[2025-04-19] MEDS: TOPROL XL 25 MG PO (08:36)
[2025-04-19] MEDS: HEPARIN 5000 UNITS SC (08:36)
--- NOTE | 2025-04-19 10:26 | CM ---
CM following for discharge back to [facility]. Bed is available for transfer today. Clinical updates sent [facility]; Jonnathan in admissions is aware of pt's return.
CM to contact pt's daughter, Sarahi Raygoza, to notify her of her mother's transfer back to [facility] today via ambulance.
[facility] [phone]
[facility] [place]
[2025-04-19 14:43] VITALS: BP 101/48
== END 2025-04-19 15:21 | DRG 193 ==
LOC: 3 WEST ACU 22:43
PROVIDERS: Clinical Nurse Specialist Family Health; Internal Medicine; Nurse Practitioner Family; Registered Nurse; ADMITTING PHYSICIAN Student in an Organized Health Care Education/Training Program; ATTENDING PHYSICIAN Hospitalist; CONSULT PHYSICIAN Internal Medicine Critical Care Medicine; EMERGENCY PHYSICIAN Student in an Organized Health Care Education/Training Program; FAMILY PHYSICIAN Student in an Organized Health Care Education/Training Program; OTHER PHYSICIAN Internal Medicine Interventional Cardiology
PROC: 5A09357 Assistance with Respiratory Ventilation, Less than 24 Consecutive Hours, Continuous Positive Airway Pressure (ICD-10-PCS; 2025-04-13)
DX: J18.9 Pneumonia, unspecified organism (principal); J96.21 Acute and chronic respiratory failure with hypoxia; J44.0 Chronic obstructive pulmonary disease with (acute) lower respiratory infection; J44.1 Chronic obstructive pulmonary disease with (acute) exacerbation; F03.94 Unspecified dementia, unspecified severity, with anxiety; Z95.5 Presence of coronary angioplasty implant and graft; I25.10 Atherosclerotic heart disease of native coronary artery without angina pectoris; I10 Essential (primary) hypertension; Z87.891 Personal history of nicotine dependence; Z88.0 Allergy status to penicillin; Z79.899 Other long term (current) drug therapy; Z79.82 Long term (current) use of aspirin; Z79.890 Hormone replacement therapy; Z99.81 Dependence on supplemental oxygen; Z88.8 Allergy status to other drugs, medicaments and biological substances; D64.9 Anemia, unspecified; E78.5 Hyperlipidemia, unspecified; Z11.52 Encounter for screening for COVID-19
CPT/HCPCS: 36600; 71045; 71250; 80048; 80053; 81003; 81015; 82805; 83605; 83735; 83880; 85025; 85027; 85610; 85730; 87040; 87070; 87086; 87449; 87502; 87811; 87899; 92526; 92610; 93306; 93970; 94640; 94660; 94669; 96374; 96375; 97110; 97116; 97163; 97530; 99291

== ENCOUNTER → 2025-05-04 09:30 | Outpatient (REF) | payer MEDICARE, OTHER, SELFPAY ==
[2025-05-04 12:27] LABS: TSH 4.14 uIU/ml (0.47-4.68)
== END ==
LOC: OLABN 09:30
PROVIDERS: ATTENDING PHYSICIAN Student in an Organized Health Care Education/Training Program
DX: E03.9 Hypothyroidism, unspecified (principal)
CPT/HCPCS: 36415; 84443